=== PATIENT | female | born 1960 | race Caucasian/White ===

== ENCOUNTER 2018-07-20 05:52 | Inpatient (IN) | payer OTHER ==
[~2018-07-20] VITALS: Ht 170.2 cm; Wt 118.0 kg
[2018-07-20] VITALS (33 sets, daily range): BP systolic 120–177; BP diastolic 61–91; PULSE 60–96; RESP 11–22; Ht 170.2 cm; Wt 118.0 kg
[2018-07-20] MEDS ORDERED: LEVO25TA50 PO (06:43)
[2018-07-20] MEDS ORDERED: LOSA1TAB22 PO (06:44)
[2018-07-20] MEDS: LACTATED RINGER'S 1,000 ML IV SCH (07:21)
--- NOTE | 2018-07-20 07:23 | HPN ---
Date/Time of Note Date/Time of Note DATE: 07/20/18 TIME: 07:23 Interval H&P Admission Note Pt. seen H&P reviewed: No system changes OVIDIO NOVA MD Jul 20, 2018 07:23
[2018-07-20] MEDS ORDERED: VANCOMYCIN 1 GM INJ ONE ×2 (07:29→09:51)
[2018-07-20] MEDS ORDERED: GELATIN SIZE 100 SPONGE ONE (07:29)
[2018-07-20] MEDS ORDERED: BUPIVACAINE 0.5%/EPI (SDV) 30 ML INJ ONE (07:30)
[2018-07-20] MEDS ORDERED: THROMBIN 5000 UNIT VIAL ONE (07:30)
[2018-07-20] MEDS ORDERED: HEPARIN 1000 UNITS/ML 10 ML INJ ONE (07:31)
--- NOTE | 2018-07-20 07:40 | PREAC ---
Date/Time of Note Date/Time of Note DATE: 07/20/18 TIME: 07:38 Anesthesia Eval and Record Evaluation Time Pre-Procedure Interview DATE: 07/20/18 TIME: 07:38 Age 57 Sex female NPO: 8 hrs Preoperative diagnosis degenerative disk disease Planned procedure anterior posterior lumbar fusion Past Medical History Past Medical History: Includes Cardio: HTN Endo: Hypothyroid GI: Obesity Surgery & Anesthesia Issues No known issue Meds Anticoagulation: No Beta Billy within 24 hr: No Reason Beta Billy not given: Pt. not on B-Billy Reported Medications Losartan-Hydrochlorothiazide (Losartan-HCTZ) 50-12.5 Mg Tab, 1 TAB PO DAILY, TAB 07/20/18 Levothyroxine Sodium* (Levoxyl*) 25 Mcg Tablet, 25 MCG PO BEFORE BREAKFAST, #30 TAB 07/20/18 Current Medications Lactated Ringer's 1,000 ml @ 30 mls/hr Q24H IV Last administered on 07/20/18at 07:21; Admin Dose 30 MLS/HR; Start 07/20/18 at 07:30 Meds reviewed: Yes Allergies Coded Allergies: Penicillins (Verified Allergy, Mild, 07/20/18) procaine (Verified Allergy, Mild, 07/20/18) Iodine and Iodide Containing Produc (Verified Allergy, Unknown, 07/20/18) shrimp (Verified Allergy, Unknown, 07/20/18) Allergies Reviewed: Yes Labs/Studies Labs Reviewed: Reviewed by anesthesiologist test: N/A Pre-procedure Exam Last vitals Vital Signs Date Temp Pulse Resp B/P (MAP) Pulse Ox O2 O2 Flow FiO2 Time Delivery Rate 07/20/18 98.1 70 18 146/75 99 07:13 (98) Airway: Adequate mouth opening, Adequate thyromental dist Mallampati: Mallampati IV Teeth: Normal Lung: Normal Heart: Normal ASA Physical Status ASA physical status: 3 Emergency: None Pre-operative Attestations Prior to commencing anesthesia and surgery, the patient was re-evaluated, there was verification of: *The patient's identity *The results of appropriate recent lab work and preoperative vital signs *The above evaluation not changing prior to induction *Anesthetic plan, risk benefits, alternative and complications discussed with patient/family; questions answered; patient/family understands, accepts and wishes to proceed. MORALES PHILLIPS DO Jul 20, 2018 07:40
[2018-07-20] MEDS ORDERED: ETOMIDATE 20 MG INJ ONE (07:43)
[2018-07-20] MEDS ORDERED: PROPOFOL 20 ML ONE (07:43)
[2018-07-20] MEDS ORDERED: ROCURONIUM 50 MG INJ ONE (07:43)
[2018-07-20] MEDS ORDERED: LIDOCAINE 1% (MDV) 20 ML INJ ONE (07:43)
[2018-07-20] MEDS ORDERED: MIDAZOLAM 1 MG/ML 2 ML INJ ONE (07:43)
[2018-07-20] MEDS ORDERED: CLINDAMYCIN 900 MG/D5W (PMX) 50 ML IVPB ONE (08:29)
[2018-07-20] MEDS ORDERED: METOCLOPRAMIDE 10 MG INJ ONE (14:01)
[2018-07-20] MEDS ORDERED: DEXAMETHASONE 4 MG/ML 5 ML INJ ONE (14:01)
[2018-07-20] MEDS ORDERED: ONDANSETRON 4 MG INJ ONE (14:01)
[2018-07-20] MEDS ORDERED: FAMOTIDINE 20 MG INJ ONE (14:02)
[2018-07-20] MEDS ORDERED: morphine 10 MG INJ ONE (14:14)
--- NOTE | 2018-07-20 14:36 | OPR ---
Date/Time of Note Date/Time of Note DATE: 07/20/18 TIME: 14:18 Operative Report Free Text/Dictation DATE OF OPERATION: 07/20/2018 PREOPERATIVE DIAGNOSES: 1. L4-5 degenerative disc disease with stenosis with radiculopathy 2. L5-S1 degenerative disc disease with severe bilateral foraminal stenosis with radiculopathy 3. Morbid Obesity 40.7 kg/m2 POSTOPERATIVE DIAGNOSES: 1. L4-5 degenerative disc disease with stenosis with radiculopathy 2. L5-S1 degenerative disc disease with severe bilateral foraminal stenosis with radiculopathy 3. Morbid Obesity 40.7 kg/m2 OPERATION PERFORMED: 1. Anterior lumbar interbody fusion L4-5 2. Placement of anterior interbody device L4-5 3. Placement of posterior spinal segmental instrumentation L4-5 4. Posterior spinal fusion L4-5 5. Anterior lumbar interbody fusion L5-S1 6. Placement of anterior interbody device L5-S1 7. Placement of posterior spinal segmental instrumentation L5-S1 8. Posterior spinal fusion L5-S1 9. Interpretation of neuromonitoring SURGEON: Ovidio Nova MD Vascular surgeon: Choco Fulton MD ANESTHESIA: General endotracheal ESTIMATED BLOOD LOSS: 350 cc SURGICAL INDICATION: The patient is a 57 year-old female who presents with an increasing history of back and bilateral (right greater than left) leg pain with weakness. She has a past medical history significant for a left sided L5- [id number]. The patient was found to have severe degenerative disk disease at L4-5 and L5-S1 with associated foraminal stenosis with radiculopathy. The patient had failed conservative treatments. Risks, benefits and alternatives to an anterior and posterior spinal fusion with instrumentation were explained to the patient including but not exclusive of bleeding, infection, visceral injury, nerve injury, nonunion, instrumentation failure, lack of symptom relief, myocardial infarction, stroke, and pulmonary embolism, and they wished to proceed. DESCRIPTION OF TECHNIQUE: The patient was identified in the preoperative area and taken to the operating room. Rapid induction of general endotracheal anesthesia was performed. Patient was given 900 milligrams of IV clindamycin for prophylaxis. The patient was positioned in the supine position on the operative table. All bony prominences were well padded. The patient's abdomen and left flank were prepped and draped in the usual sterile fashion. A time out was held. A longitudinal skin incision was made across the L4-S1 level by our vascular surgeon Dr. Fulton. After the exposure was completed, I performed a L4-5 diskectomy. The disc was incised using a sharp 15 mm blade. I then used a rubina elevator to loosen the disk material from the superior and inferior endplates. I then used a rongeur to luz ve the disc material and a series of curved and straight curettes to evacuate the disc space. I also used a series of pituitaries and kerrisons to ensure appropriate end plate preparation. Attention was placed to ensure removal of disk material to bleeding endplates without violation of the endplate. I then used the trial rasps to prepare and size the disc space and was able to place a 14 mm x 42 mm x 30mm PEEK anterior lumbar interbody spacer with 8 degrees of lordosis. To ensure appropriate sizing of the implant, I checked for fit and placement under C arm control and I felt the 8 degree lordotic 14 mm cage gained good lordosis and advent of disc height and was an appropriate fit. I then inserted the cage after the trail. This cage was filled with 1 sponge of BMP and morselized bone allograft. Additional morselized allograft was placed around and anterior to the cage in the disc space. 2mL of tisseal was also used prior to placement of the cage in order to reduce the risk of BMP radiculitis. Four 25 mm screws were placed to secure the implant to the lumbar vertebrae. The exposure was then extended distally to the L5-S1 disk space. I performed a L5-S1 diskectomy. The disc was incised using a sharp 15 mm blade. I then used a urbina elevator to loosen the disk material from the superior and inferior endplates. I then used a rongeur to remove the disc material and a series of curved and straight curettes to evacuate the disc space. I also used a series of pituitaries and kerrisons to ensure appropriate end plate preparation. Attention was placed to ensure removal of disk material to bleeding endplates without violation of the endplate. I then used the trial rasps to prepare and size the disc space and was able to place a 12 mm trial with 12 degrees of lordosis. To ensure appropriate sizing of the implant, I checked for fit and placement under C arm control and I felt the 12degree lordotic 12 mm cage gained good lordosis and advent of disc height and was an appropriate fit. I then inserted the 12mm [id number] 12 degree lordotic cage after the trail. This cage was filled with a small BMP and morselized bone allograft. . Additional morselized allograft was placed around and anterior to the cage in the disc space. 2mL of tisseal was also used prior to placement of the cage in order to reduce the risk of BMP radiculitis. Four 25 mm screws were placed to secure the implant to the lumbar vertebrae. The wound was then irrigated. X-rays were taken to check for instruments. Our vascular suregon closed the posterior rectus sheath and incision. The wound was closed and dressed in standard fashion. We then focused on placement of posterior spinal segmental instrumentation from L4-S1. The patient was flipped to the prone position with all bony promineneces well padded. We ensured that the antibiotics were appropriately redosed. The lumbar spine was then prepped and draped in sterile fashion. A timeout was once again performed. . Using intraoperative fluoroscopy, the pedicles were identified at each level. Care was taken to alter the fluoroscopic view to have a true AP and lateral at each level. Jamshidi needles were then passed down to the lateral aspect of the pedicles through stab incisions. The Jamshidi needles were malleted into the pedicles. These were also performed under EMG guidance. Care was taken to ensure that the needles did not pass the medial wall of the pedicle on the AP view prior to checking that the needle was past the posterior wall of the vertebral body. The needles were then malleted further into the vertebral bodies themselves. Guidewires were passed through the needles and the needles were removed. Taps were applied over the guidewires. Screws were then placed bilaterally into the vertebral bodies. AP and lateral views confirmed appropriate placement of the instrumentation. Attention was turned toward the posterior spinal fusion from L4-S1. Rods were selected of the appropriate length and placed into the screw heads. End caps were applied and final tightening was performed using a pmyzxm-igufrfq-kafvlo wrench. The exposed facet joints were decorticated using a bur. A small remaining amount of the bone (allograft) was placed into the facet joints to facilitate the posterior fusion. Due to the patients morbid obesity (BMI 40.7 kg/m2) an additional 45 minutes was taken for exposure and instrumentation given the patient's body habitus. The wound was irrigated copiously using normal saline. The fascia was then closed using 1 Vicryl in interrupted fashion. Subcutaneous tissue was closed using 2-0 Vicryl in interrupted fashion. Skin was closed using a running 4-0 Monocryl stitch. The wounds were dressed using Dermabond, sterile gauze and Tegaderm. Procedure Date: Jul 20, 2018 Preoperative Diagnosis 1. L4-5 degenerative disc disease with stenosis with radiculopathy 2. L5-S1 degenerative disc disease with severe bilateral foraminal stenosis with radiculopathy 3. Morbid Obesity 40.7 kg/m2 Postoperative Diagnosis 1. L4-5 degenerative disc disease with stenosis with radiculopathy 2. L5-S1 degenerative disc disease with severe bilateral foraminal stenosis with radiculopathy 3. Morbid Obesity 40.7 kg/m2 Operation/Procedure Performed 1. Anterior lumbar interbody fusion L4-5 2. Placement of anterior interbody device L4-5 3. Placement of posterior spinal segmental instrumentation L4-5 4. Posterior spinal fusion L4-5 5. Anterior lumbar interbody fusion L5-S1 6. Placement of anterior interbody device L5-S1 7. Placement of posterior spinal segmental instrumentation L5-S1 8. Posterior spinal fusion L5-S1 9. Interpretation of neuromonitoring Surgeon see signature line Hand Spring Repairer Helper Choco Fulton MD (Vascular access surgeon) Anesthesia Type: general Estimated Blood Loss: other Transfusion none Specimen L4-5 and L5-S1 disk Grafts/Implants Brigade NuVasive Anterior Lumbar Interbody cage L4-5: [id number] 8 degree lordotic L5-S1: [id number] 12 degree lordotic L4-S1 6.5 x 40 mm screws x 6 Rods: 75 mm (right) and 70 mm (Left) Complications none Pt Condition Post Procedure: stable Disposition: PACU Procedure Description The patient was identified in the preoperative area and taken to the operating room. Rapid induction of general endotracheal anesthesia was performed. Patient was given 900 milligrams of IV clindamycin for prophylaxis. The patient was positioned in the supine position on the operative table. All bony prominences were well padded. The patient's abdomen and left flank were prepped and draped in the usual sterile fashion. A time out was held. A longitudinal skin incision was made across the L4-S1 level by our vascular surgeon Dr. Fulton. After the exposure was completed, I performed a L4-5 diskectomy. The disc was incised using a sharp 15 mm blade. I then used a urbina elevator to loosen the disk material from the superior and inferior endplates. I then used a rongeur to remove the disc material and a series of curved and straight curettes to evacuate the disc space. I also used a series of pituitaries and kerrisons to ensure appropriate end plate preparation. Attention was placed to ensure removal of disk material to bleeding endplates without violation of the endplate. I then used the trial rasps to prepare and size the disc space and was able to place a 14 mm x 42 mm x 30mm PEEK anterior lumbar interbody spacer with 8 degrees of lordosis. To ensure appropriate sizing of the implant, I checked for fit and placement under C arm control and I felt the 8 degree lordotic 14 mm cage gained good lordosis and advent of disc height and was an appropriate fit. I then inserted the cage after the trail. This cage was filled with 1 sponge of BMP and morselized bone allograft. Additional morselized allograft was placed around and anterior to the cage in the disc space. 2mL of tisseal was also used prior to placement of the cage in order to reduce the risk of BMP radiculitis. Four 25 mm screws were placed to secure the implant to the lumbar vertebrae. The exposure was then extended distally to the L5-S1 disk space. I performed a L5-S1 diskectomy. The disc was incised using a sharp 15 mm blade. I then used a urbina elevator to loosen the disk material from the superior and inferior endplates. I then used a rongeur to remove the disc material and a series of curved and straight curettes to evacuate the disc space. I also used a series of pituitaries and kerrisons to ensure appropriate end plate preparation. Attention was placed to ensure removal of disk material to bleeding endplates without violation of the endplate. I then used the trial rasps to prepare and size the disc space and was able to place a 12 mm trial with 12 degrees of lordosis. To ensure appropriate sizing of the implant, I checked for fit and placement under C arm control and I felt the 12degree lordotic 12 mm cage gained good lordosis and advent of disc height and was an appropriate fit. I then inserted the 12mm [id number] 12 degree lordotic cage after the trail. This cage was filled with a small BMP and morselized bone allograft. . Additional morselized allograft was placed around and anterior to the cage in the disc space. 2mL of tisseal was also used prior to placement of the cage in order to reduce the risk of BMP radiculitis. Four 25 mm screws were placed to secure the implant to the lumbar vertebrae. The wound was then irrigated. X-rays were taken to check for instruments. Our vascular suregon closed the posterior rectus sheath and incision. The wound was closed and dressed in standard fashion. We then focused on placement of posterior spinal segmental instrumentation from L4-S1. The patient was flipped to the prone position with all bony promineneces well padded. We ensured that the antibiotics were appropriately redosed. The lumbar spine was then prepped and draped in sterile fashion. A timeout was once again performed. . Using intraoperative fluoroscopy, the pedicles were identified at each level. Care was taken to alter the fluoroscopic view to have a true AP and lateral at each level. Jamshidi needles were then passed down to the lateral aspect of the pedicles through stab incisions. The Jamshidi needles were malleted into the pedicles. These were also performed under EMG guidance. Care was taken to ensure that the needles did not pass the medial wall of the pedicle on the AP view prior to checking that the needle was past the posterior wall of the vertebral body. The needles were then malleted further into the vertebral bodies themselves. Guidewires were passed through the needles and the needles were removed. Taps were applied over the guidewires. Screws were then placed bilaterally into the vertebral bodies. AP and lateral views confirmed appropriate placement of the instrumentation. Attention was turned toward the posterior spinal fusion from L4-S1. Rods were selected of the appropriate length and placed into the screw heads. End caps were applied and final tightening was performed using a ewelhe-rotzvsc-smubrb wrench. The exposed facet joints were decorticated using a bur. A small remaining amount of the bone (allograft) was placed into the facet joints to facilitate the posterior fusion. Due to the patients morbid obesity (BMI 40.7 kg/m2) an additional 45 minutes was taken for exposure and instrumentation given the patient's body habitus. The wound was irrigated copiously using normal saline. The fascia was then closed using 1 Vicryl in interrupted fashion. Subcutaneous tissue was closed using 2-0 Vicryl in interrupted fashion. Skin was closed using a running 4-0 Monocryl stitch. The wounds were dressed using Dermabond, sterile gauze and Tegaderm. OVIDIO NOVA MD Jul 20, 2018 14:29
--- NOTE | 2018-07-20 14:55 | PAC ---
Date/Time of Note Date/Time of Note DATE: 07/20/18 TIME: 14:54 Post-Anesthesia Notes Post-Anesthesia Note Last documented vital signs Vital Signs Date Temp Pulse Resp B/P (MAP) Pulse Ox O2 O2 Flow FiO2 Time Delivery Rate 07/20/18 98 75 18 146/75 99 1500 (98) Activity: WNL Respiratory function: WNL Cardiovascular function: WNL Mental status: Baseline Pain reasonably controlled: Yes Hydration appropriate: Yes Nausea/Vomiting absent: Yes MORALES PHILLIPS DO Jul 20, 2018 14:55
[2018-07-20] MEDS ORDERED: NALOXONE (0.4 MG/ML) INJ IV PRN (15:00)
[2018-07-20] MEDS ORDERED: MEPERIDINE 25 MG INJ IV PRN (15:00)
[2018-07-20] MEDS ORDERED: ACETAMINOPHEN 325 MG TAB PO PRN (15:00)
[2018-07-20] MEDS ORDERED: HYDROmorphONE 1 MG/5 ML IV SYRINGE IV PRN ×3 (15:00)
[2018-07-20] MEDS ORDERED: HYDROmorphONE 0.2 MG/ML PCA IV SCH (15:00)
[2018-07-20] MEDS ORDERED: PROCHLORPERAZINE 10 MG TAB PO PRN (15:00)
[2018-07-20] MEDS ORDERED: hydrALAzine 20 MG INJ IV PRN (15:00)
[2018-07-20] MEDS ORDERED: NACL 0.9% 3 ML SYG IV SCH (15:00)
[2018-07-20] MEDS ORDERED: ONDANSETRON 4 MG INJ IV PRN (15:00)
[2018-07-20] MEDS ORDERED: LABETALOL HCL 20MG INJ IV PRN (15:00)
[2018-07-20] MEDS: SOD CHLORIDE 0.45% 1,000 ML IV SCH (17:21)
[2018-07-20] MEDS: LOSARTAN 50 MG TAB PO SCH (18:00)
[2018-07-20] MEDS: VANCOMYCIN 1 GM (PMX) 250 ML IVPB SCH (18:01)
--- NOTE | 2018-07-20 18:07 | CONS ---
DATE OF ADMISSION: 07/20/2018 DATE OF CONSULTATION: 07/20/2018 Dr. Nova. Thank you very much for allowing me to evaluate this 57-year-old female who just underwent lumbar manisha k surgery. HISTORICAL EVENTS: As you well know, this patient underwent surgery for L4-L5 degenerative arthritis requiring an anterior lumbar interbody fusion. Postoperatively, she did well except for nausea and vomiting, which resulted in some bleeding from the anterior wound. Presently, she notes no abdominal discomfort and denies cough, wheezing, shortness of breath, or chest pain. PAST MEDICAL HISTORY: 1. Hypertension. 2. Cholecystectomy. 3. Prior lumbar back surgery. 4. Hypothyroidism. 5. History of right lower extremity nerve damage. MEDICATIONS: Prior to admission: 1. Losartan/hydrochlorothiazide 50/12.5 2. Levothyroxine 25 mg per day. 3. Gabapentin 300 mg. ALLERGIES: INTOLERANCE INCLUDE FISH, PENICILLIN AND NOVOCAIN. PHYSICAL EXAMINATION: VITAL SIGNS: BP 122/80, pulse 72, respirations were 18. She was afebrile. EYES: Extraocular muscles were full. NOSE, MOUTH, AND THROAT: Normal. NECK: Supple. There was no jugular venous distention, thyroid enlargement or adenopathy. LUNGS: Clear. HEART: Rhythm regular. ABDOMEN: Distended. EXTREMITIES: Slight tenderness involving the periumbilical area. The present dressing on the anteri or abdomen was not blood tinged. EXTREMITIES: No edema, no calf tenderness. NEUROLOGIC: No lateralizing motor weakness. IMPRESSION: 1. Postop lumbar back surgery. 2. Mild bleeding from the anterior wound to be observed closely. 3. History of hypertension, to resume her BP 4. Hypothyroidism to resume thyroid replacement. PLAN: Will follow daily for signs and symptoms of thromboembolic disease. Dictated By: AMISH WARD MD MR/NTS Conf#: [id number] DID#: [id number] CC: OVIDIO NOVA MD;*EndCC*
[2018-07-21 00:15] VITALS: BP 111/55; PULSE 97; RESP 20
[2018-07-21] MEDS: SOD CHLORIDE 0.45% 1,000 ML IV SCH ×2 (00:36→03:53)
[2018-07-21 04:16] VITALS: BP 113/55; PULSE 87; RESP 18
[2018-07-21] MEDS: VANCOMYCIN 1 GM (PMX) 250 ML IVPB SCH (05:36)
[2018-07-21] MEDS: LEVOTHYROXINE 25 MCG TAB PO SCH (06:07)
[2018-07-21] MEDS: LACTATED RINGER'S 1,000 ML IV SCH (06:08)
[2018-07-21 07:40] VITALS: BP 113/59; PULSE 86; RESP 19
--- NOTE | 2018-07-21 08:31 | CONS ---
Assessment/Plan Assessment/Plan Assessment/Plan (Daily) 1. Stable post op lumbar back surgery 2. BP well controlled. 3. Anemia noted 4. Hypothyroid on replacement rx Consultation Date/Type/Reason Admit Date/Time Jul 20, 2018 at 05:52 Initial Consult Date Date/Time of Note DATE: 07/21/18 TIME: 08:29 Detailed Summary Respiratory: No cough, No shortness of breath Cardiovascular: No chest pain, No palpitations Gastrointestinal: other (mild periumbilical discomnfort without n or v) Genitourinary: other (hankins in place) Musculoskeletal: back pain (moderate) Exam/Review of Systems Exam Vitals Vital Signs Date Temp Pulse Resp B/P (MAP) Pulse Ox O2 O2 Flow FiO2 Time Delivery Rate 07/21/18 98.0 86 19 113/59 97 Room Air 07:40 (77) 07/21/18 2.0 04:16 Intake and Output 07/20/18 07/20/18 07/21/18 1515:00 23:00 07:00 IntakeIntake Total 3125 ml 375 ml 1530 ml OutputOutput Total 550 ml 1800 ml BalanceBalance 2575 ml 375 ml -270 ml Neck: No jvd Respiratory: clear to auscultation Cardiovascular: regular rate and rhythm Gastrointestinal: soft, distended (mild and sl tenderness) Extremities: No edema Results Result Diagram: 07/21/18 0444 07/21/18 0444 Results 24hrs Laboratory Tests Test 07/20/18 18:34 07/21/18 04:44 07/21/18 07:51 White Blood Count 8.1 Red Blood Count 3.73 L Hemoglobin 12.1 10.9 L Hematocrit 36.1 L 33.1 L Mean Corpuscular Volume 96.8 Mean Corpuscular Hemoglobin 32.4 Mean Corpuscular 33.5 Hemoglobin Concent Red Cell Distribution Width 14.9 H Platelet Count 170 Mean Platelet Volume 11.2 H Immature Granulocytes % 0.700 H Neutrophils % 90.0 H Lymphocytes % 5.2 L Monocytes % 4.0 Eosinophils % 0.0 Basophils % 0.1 Nucleated Red Blood Cells % 0.0 Immature Granulocytes # 0.060 H Neutrophils # 7.3 Lymphocytes # 0.4 L Monocytes # 0.3 Eosinophils # 0.0 Basophils # 0.0 Nucleated Red Blood Cells # 0.0 Sodium Level 140 Potassium Level 3.9 Chloride Level 106 Carbon Dioxide Level 26 Anion Gap 8 Blood Urea Nitrogen 11 Creatinine 0.73 Est Glomerular Filtrat > 60 Rate mL/min Glucose Level 131 Calcium Level 8.4 Lab Scanned Report REFERENCE LAB Medications Medication Current Medications Lactated Ringer's 1,000 ml @ 30 mls/hr Q24H IV Last administered on 07/20/18at 07:21; Admin Dose 30 MLS/HR; Start 07/20/18 at 07:30 Sodium Chloride 1,000 ml @ 100 mls/hr Q10H IV Last administered on 07/21/18at 03:53; Admin Dose 100 MLS/HR; Start 07/20/18 at 14:36 Acetaminophen/ Hydrocodone Bitart ([place] (5/325)) 1 tab Q4H PRN PO .PAIN 1-5; Start 07/20/18 at 15:00 Acetaminophen/ Hydrocodone Bitart ([place] (5/325)) 2 tab Q4H PRN PO .PAIN 6-10; Start 07/20/18 at 15:00 Prochlorperazine (Compazine) 10 mg Q4H PRN PO NAUSEA/VOMITING; Start 07/20/18 at 15:00 Ondansetron HCl (Zofran Inj) 4 mg Q6H PRN IV NAUSEA/VOMITING Last administered on 07/20/18at 16:03; Admin Dose 4 MG; Start 07/20/18 at 15:00 Docusate Sodium (Colace) 100 mg BID PO ; Start 07/21/18 at 09:00 Acetaminophen (Tylenol Tab) 650 mg Q4H PRN PO TEMP GREATER THAN 101F OR [place]; Start 07/20/18 at 15:00 IV Flush (NS 3 ml) 3 ml PER PROTOCOL IV ; Start 07/20/18 at 15:00 Hydromorphone HCl (Dilaudid LEAKAGE TESTER) Q4PCA IV Last administered on 07/20/18at 15:03; Admin Dose 6 MG; Start 07/20/18 at 15:00 Naloxone HCl (Narcan) 0.2 mg Q2M PRN IV RR 8 BREATHS/MIN OR LESS; Start 07/20/18 at 15:00 Levothyroxine Sodium (Synthroid) 25 mcg BEFORE BREAKFAST PO Last administered on 07/21/18at 06:07; Admin Dose 25 MCG; Start 07/21/18 at 07:00 Losartan Potassium (Cozaar) 50 mg DAILY PO ; Start 07/20/18 at 18:00 AMISH WARD MD Jul 21, 2018 08:31
[2018-07-21] MEDS: DOCUSATE SODIUM 100 MG CAP PO SCH ×2 (08:49→20:12)
[2018-07-21] MEDS: LOSARTAN 50 MG TAB PO SCH (08:50)
--- NOTE | 2018-07-21 13:15 | CONS ---
Consultation Date/Type/Reason Admit Date/Time Jul 20, 2018 at 05:52 Initial Consult Date Date/Time of Note DATE: 07/21/18 TIME: 12:59 24 HR Interval Summary Free Text/Dictation S: 57 yo F POD#1 s/p L4-S1 ALIF w/ PSIF. Patient is doing well. No acute events over night. Pain controlled w/ dilaudid HOOF TRIMMER. OOB w/ PT. Toerating clear diet. O: Vital Signs Date Temp Pulse Resp B/P (MAP) Pulse Ox O2 O2 Flow FiO2 Time Delivery Rate 07/21/18 98.0 86 19 113/59 97 Room Air 07:40 (77) 07/21/18 2.0 04:16 Gen: AAO x3, NAD Spine: Mild decreased sensation in RLE in L5 distribution (improved from pre- op), 4+/5 TA (improved from preop), NVI Abdomen: Mild SS drainage, soft, mild distension A/P:57 yo F POD#1 s/p L4-S1 ALIF w/ PSIF. 1. D/C hankins 2. D/C HOOF TRIMMER start PO [place] w/ dilaudid for breakthrough 3. Acute Rehab consult 4. Appreciate med recs Exam/Review of Systems Exam Vitals Vital Signs Date Temp Pulse Resp B/P (MAP) Pulse Ox O2 O2 Flow FiO2 Time Delivery Rate 07/21/18 98.0 86 19 113/59 97 Room Air 07:40 (77) 07/21/18 2.0 04:16 Intake and Output 07/20/18 07/20/18 07/21/18 1515:00 23:00 07:00 IntakeIntake Total 3125 ml 375 ml 1530 ml OutputOutput Total 550 ml 1800 ml BalanceBalance 2575 ml 375 ml -270 ml Results Result Diagram: 07/21/18 0444 07/21/18 0444 Results 24hrs Laboratory Tests Test 07/20/18 18:34 07/21/18 04:44 07/21/18 07:51 White Blood Count 8.1 Red Blood Count 3.73 L Hemoglobin 12.1 10.9 L Hematocrit 36.1 L 33.1 L Mean Corpuscular Volume 96.8 Mean Corpuscular Hemoglobin 32.4 Mean Corpuscular 33.5 Hemoglobin Concent Red Cell Distribution Width 14.9 H Platelet Count 170 Mean Platelet Volume 11.2 H Immature Granulocytes % 0.700 H Neutrophils % 90.0 H Lymphocytes % 5.2 L Monocytes % 4.0 Eosinophils % 0.0 Basophils % 0.1 Nucleated Red Blood Cells % 0.0 Immature Granulocytes # 0.060 H Neutrophils # 7.3 Lymphocytes # 0.4 L Monocytes # 0.3 Eosinophils # 0.0 Basophils # 0.0 Nucleated Red Blood Cells # 0.0 Sodium Level 140 Potassium Level 3.9 Chloride Level 106 Carbon Dioxide Level 26 Anion Gap 8 Blood Urea Nitrogen 11 Creatinine 0.73 Est Glomerular Filtrat > 60 Rate mL/min Glucose Level 131 Calcium Level 8.4 Lab Scanned Report REFERENCE LAB Medications Medication Current Medications Sodium Chloride 1,000 ml @ 100 mls/hr Q10H IV Last administered on 07/21/18at 03:53; Admin Dose 100 MLS/HR; Start 07/20/18 at 14:36 Acetaminophen/ Hydrocodone Bitart ([place] (5/325)) 1 tab Q4H PRN PO .PAIN 1-5; Start 07/20/18 at 15:00 Acetaminophen/ Hydrocodone Bitart ([place] (5/325)) 2 tab Q4H PRN PO .PAIN 6-10; Start 07/20/18 at 15:00 Prochlorperazine (Compazine) 10 mg Q4H PRN PO NAUSEA/VOMITING; Start 07/20/18 at 15:00 Ondansetron HCl (Zofran Inj) 4 mg Q6H PRN IV NAUSEA/VOMITING Last administered on 07/20/18at 16:03; Admin Dose 4 MG; Start 07/20/18 at 15:00 Docusate Sodium (Colace) 100 mg BID PO Last administered on 07/21/18at 08:49; Admin Dose 100 MG; Start 07/21/18 at 09:00 Acetaminophen (Tylenol Tab) 650 mg Q4H PRN PO TEMP GREATER THAN 101F OR [place]; Start 07/20/18 at 15:00 IV Flush (NS 3 ml) 3 ml PER PROTOCOL IV ; Start 07/20/18 at 15:00 Hydromorphone HCl (Dilaudid HOOF TRIMMER) Q4PCA IV Last administered on 07/20/18at 15:03; Admin Dose 6 MG; Start 07/20/18 at 15:00 Naloxone HCl (Narcan) 0.2 mg Q2M PRN IV RR 8 BREATHS/MIN OR LESS; Start 07/20/18 at 15:00 Levothyroxine Sodium (Synthroid) 25 mcg BEFORE BREAKFAST PO Last administered on 07/21/18at 06:07; Admin Dose 25 MCG; Start 07/21/18 at 07:00 Losartan Potassium (Cozaar) 50 mg DAILY PO ; Start 07/20/18 at 18:00 OVIDIO NOVA MD Jul 21, 2018 13:14
[2018-07-21] MEDS: HYDROCODONE/APAP (5/325) TAB PO PRN (14:00)
[2018-07-21 14:48] VITALS: BP 117/58; PULSE 92
--- NOTE | 2018-07-21 16:33 | OPR ---
DATE OF OPERATION: 07/20/2018 PREOPERATIVE DIAGNOSIS: Degenerative disk disease, lumbosacral spine. POSTOPERATIVE DIAGNOSIS: Degenerative disk disease, lumbosacral spine PROCEDURES: 1. Anterior retroperitoneal exposure interbody fusion L4-L5. 2. Anterior retroperitoneal exposure interbody fusion lumbosacral spine, L5-S1. 3. Repair of left iliac vein. SURGEON: Fabricio Baltazar MD CARTON CATCHER: Dr. Dwyer ESTIMATED BLOOD LOSS: 200 mL. INFORMED CONSENT: Risks, benefits, complications, alternative therapies, high-risk nature of the ope ration fully explained to the patient and the family, consent obtained. Risks and benefits that were explained to the patient and the family included, but not limited to bleeding, infection, damage to bowel, damage to ureter, wound infection, wound dehiscences, DVT, PE, loss of limb, loss of life, hig h-risk nature of the operation fully explained and stressed to the patient. All questions answered. DESCRIPTION OF PROCEDURE: I made a 10 cm incision midline from the umbilicus down to the xiphoid pro cess. Incision was taken down to subcutaneous tissue. Post-anterior rectus sheath was opened in the direction of the wound slightly to the left of the midline. Posterior rectus sheath was incised sup eriorly about 2 cm. Bookwalter retractor was placed, retracting the bowel contents to the right, lef t rectus muscle to the left. I dissected the left common iliac artery and vein, external iliac arter y and vein, middle sacral vessels were ligated using titanium clips. The lumbar vessels were ligated using 2-0 silk ties and titanium clips. Exposure for L4-L5 was obtained by lateralizing the aorta, vena cava and iliac vessels to the right. Exposure for L5-S1 was between the right and left common i liac artery and vein. There was a small branch that avulsed from the left common iliac vein, which w as repaired using a [id number] 6-0 Prolene. We proceeded with diskectomy and placement of the n ew cage. Please refer to Dr. Dwyer's dictation for the details of that operation. After all x-r ays were satisfactorily read by Dr. Dwyer, anterior rectus sheath was closed using a #1 Vicryl srivastava ture in running fashion, interrupted sutures in the middle. The wound was irrigated again and closed in 2 layers of 2-0 Vicryl suture for subcutaneous, Steri-Strips for the skin. Patient tolerated pro cedure well. Dictated By: FABRICIO GILMORE/ARCADIO Conf#: [id number] DID#: [id number]
--- NOTE | 2018-07-21 16:34 | CONS ---
DATE OF ADMISSION: 07/20/2018 DATE OF CONSULTATION: 07/20/2018 PREOPERATIVE DIAGNOSIS: Degenerative disk disease, lumbosacral spine. HISTORY OF PRESENT ILLNESS: This is a 57-year-old female with history of degenerative disk disease, lumbosacral spine. The patient is to undergo anterior retroperitoneal exposure and interbody fusion of lumbosacral spine. PAST MEDICAL HISTORY: Hypertension, obesity. PAST SURGICAL HISTORY: None. ALLERGIES: NONE. SOCIAL HISTORY: No smoking, drinking or drug use. MEDICATION LIST: Reviewed. PHYSICAL EXAMINATION: VITAL SIGNS: Blood pressure is 110/60, pulse is 80, respirations 18. CARDIOVASCULAR: Normal S1, S2. No murmurs, gallops or rubs. LUNGS: Clear. ABDOMEN: Soft. EXTREMITIES: Warm. IMPRESSION: Degenerative disk disease, lumbosacral spine. RECOMMENDATIONS: We will proceed with anterior retroperitoneal exposure interbody fusion of lumbosac ral spine. Risks, benefits, complications, alternative therapies were explained to the patient and c onsent was obtained. Risks and benefits that were explained to the patient included but not limited to bleeding, infection, damage to bowel, damage to ureter, wound infection, wound dehiscence, DVT, PE , loss of limb, loss of life, high-risk nature of the operation were fully explained and stressed to the patient. All questions were answered. Dictated By: FABRICIO RICHMOND MD FM/NTS Conf#: [id number] DID#: [id number] CC: AMISH WARD MD; OVIDIO NOVA MD;*EndCC*
[2018-07-21 19:49] VITALS: BP 118/61; PULSE 93; RESP 18
[2018-07-21] MEDS ORDERED: ACETAMINOPHEN 1000MG/100ML IV 100 ML IVPB SCH (20:00)
[2018-07-22] MEDS: HYDROCODONE/APAP (5/325) TAB PO PRN ×3 (00:26→18:30)
[2018-07-22 01:21] VITALS: BP 123/64; PULSE 103; RESP 18
[2018-07-22] MEDS: LEVOTHYROXINE 25 MCG TAB PO SCH (06:21)
[2018-07-22] MEDS ORDERED: ACETAMINOPHEN 1000MG/100ML IV 100 ML IVPB PRN (08:00)
--- NOTE | 2018-07-22 08:16 | CONS ---
Assessment/Plan Assessment/Plan Assessment/Plan (Daily) 1. Post op lumbar back surgery with ileus, cont to ambulate aggressively 2. Labs rev 3. Anemia is stable Consultation Date/Type/Reason Admit Date/Time Jul 20, 2018 at 05:52 Initial Consult Date Date/Time of Note DATE: 07/22/18 TIME: 08:13 Detailed Summary Respiratory: No cough, No shortness of breath Cardiovascular: No chest pain Gastrointestinal: other (bloated and lower abd discomfort without flatus) Genitourinary: no complaints Exam/Review of Systems Exam Vitals Vital Signs Date Temp Pulse Resp B/P (MAP) Pulse Ox O2 O2 Flow FiO2 Time Delivery Rate 07/22/18 99.5 103 18 123/64 98 01:21 (83) 07/21/18 Room Air 14:48 07/21/18 2.0 04:16 Intake and Output 07/21/18 07/21/18 07/22/18 1515:00 23:00 07:00 IntakeIntake Total 610 ml 850 ml 600 ml OutputOutput Total 650 ml BalanceBalance -40 ml 850 ml 600 ml Neck: No jvd Respiratory: clear to auscultation Cardiovascular: regular rate and rhythm Gastrointestinal: distended (rare bs and sl tender) Extremities: No edema, No tenderness Results Result Diagram: 07/22/188 07/22/18 0438 Results 24hrs Laboratory Tests Test 07/22/18 04:38 White Blood Count 7.0 Red Blood Count 3.27 L Hemoglobin 10.5 L Hematocrit 31.7 L Mean Corpuscular Volume 96.9 Mean Corpuscular Hemoglobin 32.1 Mean Corpuscular Hemoglobin Concent 33.1 Red Cell Distribution Width 15.1 H Platelet Count 170 Mean Platelet Volume 12.0 H Immature Granulocytes % 0.400 Neutrophils % 74.7 Lymphocytes % 14.8 L Monocytes % 10.1 Eosinophils % 0.0 Basophils % 0.0 Nucleated Red Blood Cells % 0.0 Immature Granulocytes # 0.030 Neutrophils # 5.2 Lymphocytes # 1.0 Monocytes # 0.7 Eosinophils # 0.0 Basophils # 0.0 Nucleated Red Blood Cells # 0.0 Sodium Level 137 Potassium Level 3.5 Chloride Level 103 Carbon Dioxide Level 28 Anion Gap 6 Blood Urea Nitrogen 10 Creatinine 0.70 Est Glomerular Filtrat Rate mL/min > 60 Glucose Level 119 Calcium Level 8.5 Phosphorus Level 2.7 Magnesium Level 1.7 Medications Medication Current Medications Acetaminophen/ Hydrocodone Bitart ([place] (5/325)) 1 tab Q4H PRN PO .PAIN 1-5 Last administered on 07/22/18at 06:22; Admin Dose 1 TAB; Start 07/20/18 at 15:00 Acetaminophen/ Hydrocodone Bitart ([place] (5/325)) 2 tab Q4H PRN PO .PAIN 6-10; Start 07/20/18 at 15:00 Prochlorperazine (Compazine) 10 mg Q4H PRN PO NAUSEA/VOMITING; Start 07/20/18 at 15:00 Ondansetron HCl (Zofran Inj) 4 mg Q6H PRN IV NAUSEA/VOMITING Last administered on 07/20/18at 16:03; Admin Dose 4 MG; Start 07/20/18 at 15:00 Docusate Sodium (Colace) 100 mg BID PO Last administered on 07/21/18at 20:12; Admin Dose 100 MG; Start 07/21/18 at 09:00 Acetaminophen (Tylenol Tab) 650 mg Q4H PRN PO TEMP GREATER THAN 101F OR [place]; S tart 07/20/18 at 15:00 IV Flush (NS 3 ml) 3 ml PER PROTOCOL IV ; Start 07/20/18 at 15:00 Naloxone HCl (Narcan) 0.2 mg Q2M PRN IV RR 8 BREATHS/MIN OR LESS; Start 07/20/18 at 15:00 Levothyroxine Sodium (Synthroid) 25 mcg BEFORE BREAKFAST PO Last administered on 07/22/18at 06:21; Admin Dose 25 MCG; Start 07/21/18 at 07:00 Losartan Potassium (Cozaar) 50 mg DAILY PO ; Start 07/20/18 at 18:00 Hydromorphone HCl (Dilaudid) 0.5 mg Q3H PRN IV SEVERE PAIN LEVEL 7-10; Start 07/21/18 at 13:30 Simethicone (Mylicon) 80 mg BID PRN PO DISTENSION/GAS/BLOATING Last administered on 07/22/18at 06:21; Admin Dose 80 MG; Start 07/21/18 at 20:00 Acetaminophen 100 ml @ 400 mls/hr Q12H PRN IVPB PAIN; Start 6/12/19 at 08:00 AMISH WARD MD Jul 22, 2018 08:16
[2018-07-22 08:50] VITALS: BP 117/63; PULSE 79; RESP 20
[2018-07-22] MEDS: LOSARTAN 50 MG TAB PO SCH (09:00)
[2018-07-22] MEDS: DOCUSATE SODIUM 100 MG CAP PO SCH ×2 (09:11→20:44)
[2018-07-22] MEDS ORDERED: POTASSIUM CHLORIDE (SR) 10 MEQ TAB PO ONE (09:15)
[2018-07-22] MEDS ORDERED: MAGNESIUM SULFATE 3 GM in DEXTROSE 5% 100 ML IVPB ONE (09:15)
[2018-07-22] MEDS: HYDROmorphONE 0.5 MG/0.5 ML SYG IV PRN ×2 (12:16→20:35)
[2018-07-22 14:15] VITALS: BP 121/62; PULSE 82; RESP 19
[2018-07-22 19:30] VITALS: BP 118/58; PULSE 98; RESP 20
[2018-07-22 20:39] VITALS: BP 124/58; PULSE 95; RESP 20
[2018-07-23] VITALS: BP 124/60; PULSE 89; RESP 20
[2018-07-23] MEDS: HYDROCODONE/APAP (5/325) TAB PO PRN ×3 (01:10→17:39)
[2018-07-23 06:13] VITALS: BP 120/60; RESP 20
[2018-07-23] MEDS: LEVOTHYROXINE 25 MCG TAB PO SCH (06:15)
--- NOTE | 2018-07-23 08:01 | CONS ---
Assessment/Plan Assessment/Plan Assessment/Plan (Daily) 1. Post op lumbar surgery, better today 2. Ileus resolving 3. Temp yesterday, blood cult pending, prior urine cult is neg 4. Cough noted, cxr was neg and wbc nl, will observe and continue incentive sp irometry, rev with RN 5. Anemia is stable Consultation Date/Type/Reason Admit Date/Time Jul 20, 2018 at 05:52 Initial Consult Date Date/Time of Note DATE: 07/23/18 TIME: 07:59 Detailed Summary Respiratory: cough (noted yesterday with baxter mucus); No shortness of breath Cardiovascular: No chest pain Gastrointestinal: other (passed gas this am) Genitourinary: no complaints Musculoskeletal: back pain (is less) Exam/Review of Systems Exam Vitals Vital Signs Date Temp Pulse Resp B/P (MAP) Pulse Ox O2 O2 Flow FiO2 Time Delivery Rate 07/23/18 98.0 20 120/60 99 Nasal 06:13 (80) Cannula 07/23/18 89 00:00 07/22/18 2.0 20:39 Intake and Output 07/22/18 07/22/18 07/23/18 1515:00 23:00 07:00 IntakeIntake Total 206 ml 480 ml 400 ml OutputOutput Total 800 ml BalanceBalance 206 ml 480 ml -400 ml Neck: No jvd Respiratory: clear to auscultation Cardiovascular: regular rate and rhythm Gastrointestinal: soft Extremities: No calf tenderness, No edema Results Result Diagram: 07/23/18 0452 07/23/18 0452 Results 24hrs Laboratory Tests Test 07/23/18 04:52 White Blood Count 7.0 Red Blood Count 3.15 L Hemoglobin 10.1 L Hematocrit 30.4 L Mean Corpuscular Volume 96.5 Mean Corpuscular Hemoglobin 32.1 Mean Corpuscular Hemoglobin Concent 33.2 Red Cell Distribution Width 14.8 H Platelet Count 178 Mean Platelet Volume 11.7 H Immature Granulocytes % 0.400 Neutrophils % 75.0 Lymphocytes % 14.9 L Monocytes % 8.7 Eosinophils % 0.7 Basophils % 0.3 Nucleated Red Blood Cells % 0.0 Immature Granulocytes # 0.030 Neutrophils # 5.2 Lymphocytes # 1.0 Monocytes # 0.6 Eosinophils # 0.1 Basophils # 0.0 Nucleated Red Blood Cells # 0.0 Sodium Level 137 Potassium Level 3.8 Chloride Level 102 Carbon Dioxide Level 30 Anion Gap 5 Blood Urea Nitrogen 9 Creatinine 0.66 Est Glomerular Filtrat Rate mL/min > 60 Glucose Level 110 Calcium Level 8.7 Phosphorus Level 3.0 Magnesium Level 2.2 Medications Medication Current Medications Acetaminophen/ Hydrocodone Bitart ([place] (5/325)) 1 tab Q4H PRN PO .PAIN 1-5 Last administered on 07/22/18 18:30; Admin Dose 1 TAB; Start 07/20/18 at 15:00 Acetaminophen/ Hydrocodone Bitart ([place] (5/325)) 2 tab Q4H PRN PO .PAIN 6-10 Last administered on 07/23/18at 01:10; Admin Dose 2 TAB; Start 07/20/18 at 15:00 Prochlorperazine (Compazine) 10 mg Q4H PRN PO NAUSEA/VOMITING; Start 07/20/18 at 15:00 Ondansetron HCl (Zofran Inj) 4 mg Q6H PRN IV NAUSEA/VOMITING Last administered on 07/20/18at 16:03; Admin Dose 4 MG; Start 07/20/18 at 15:00 Docusate Sodium (Colace) 100 mg BID PO Last administered on 07/22/18at 20:44; Admin Dose 100 MG; Start 07/21/18 at 09:00 Acetaminophen (Tylenol Tab) 650 mg Q4H PRN PO TEMP GREATER THAN 101F OR [place]; Start 07/20/18 at 15:00 IV Flush (NS 3 ml) 3 ml PER PROTOCOL IV ; Start 07/20/18 at 15:00 Naloxone HCl (Narcan) 0.2 mg Q2M PRN IV RR 8 BREATHS/MIN OR LESS; Start 07/20 at 15:00 Levothyroxine Sodium (Synthroid) 25 mcg BEFORE BREAKFAST PO Last administered on 07/23/18at 06:15; Admin Dose 25 MCG; Start 07/21/18 at 07:00 Losartan Potassium (Cozaar) 50 mg DAILY PO ; Start 07/20/18 at 18:00 Hydromorphone HCl (Dilaudid) 0.5 mg Q3H PRN IV SEVERE PAIN LEVEL 7-10 Last administered on 07/22/18at 20:35; Admin Dose 0.5 MG; Start 07/21/18 at 13:30 Simethicone (Mylicon) 80 mg BID PRN PO DISTENSION/GAS/BLOATING Last administered on 07/22/18 20:45; Admin Dose 80 MG; Start 07/21/18 at 20:00 Acetaminophen 100 ml @ 400 mls/hr Q12H PRN IVPB PAIN Last administered on 07/11 09:20; Admin Dose 400 MLS/HR; Start 07/22/18 at 08:00 AMISH WARD MD Jul 23, 2018 08:01
[2018-07-23 08:06] VITALS: BP 124/50; PULSE 75; RESP 18
[2018-07-23] MEDS: DOCUSATE SODIUM 100 MG CAP PO SCH ×2 (09:31→20:28)
[2018-07-23] MEDS: LOSARTAN 50 MG TAB PO SCH (09:31)
--- NOTE | 2018-07-23 12:25 | CONS ---
Consultation Date/Type/Reason Admit Date/Time Jul 20, 2018 at 05:52 Initial Consult Date Date/Time of Note DATE: 07/23/18 TIME: 12:22 24 HR Interval Summary Free Text/Dictation S: 57 yo F POD#3 s/p L4-S1 ALIF w/ PSIF. Patient is doing well. No acute events over night. Pain controlled w/ PO percocet. OOB w/ PT. Passing gas. Ileus resolving. Diet advanced to soft. patient had fever x 1. UA is neg. Using Incentive spirometer. Medicine aware. O: Vitals: Vital Signs Date Temp Pulse Resp B/P (MAP) Pulse Ox O2 O2 Flow FiO2 Time Delivery Rate 07/23/18 98.0 75 18 124/50 95 Room Air 08:06 (74) 07/23/18 98.0 20 120/60 99 Nasal 06:13 (80) Cannula Gen: AAOx3, NAD Spine: Mild decreased sensation in RLE in L5 distribution (improved from pre- op), 4+/5 TA (improved from preop), NVI Abdomen: Mild SS drainage, soft, mild distension A/P:57 yo F POD#3 s/p L4-S1 ALIF w/ PSIF. 1. Possible D/C to ARU tomorrow if remains afebrile 2. Soft diet 3. Appreciate med recs Exam/Review of Systems Exam Vitals Vital Signs Date Temp Pulse Resp B/P (MAP) Pulse Ox O2 O2 Flow FiO2 Time Delivery Rate 07/23/18 98.0 75 18 124/50 95 Room Air 08:06 (74) 07/22/18 2.0 20:39 Intake and Output 07/22/18 07/22/18 07/23/18 1515:00 23:00 07:00 IntakeIntake Total 206 ml 480 ml 400 ml OutputOutput Total 800 ml BalanceBalance 206 ml 480 ml -400 ml Results Result Diagram: 07/23/18 0452 07/23/18 0452 Results 24hrs Laboratory Tests Test 07/23/18 04:52 07/23/18 04:53 White Blood Count 7.0 Red Blood Count 3.15 L Hemoglobin 10.1 L Hematocrit 30.4 L Mean Corpuscular Volume 96.5 Mean Corpuscular Hemoglobin 32.1 Mean Corpuscular Hemoglobin Concent 33.2 Red Cell Distribution Width 14.8 H Platelet Count 178 Mean Platelet Volume 11.7 H Immature Granulocytes % 0.400 Neutrophils % 75.0 Lymphocytes % 14.9 L Monocytes % 8.7 Eosinophils % 0.7 Basophils % 0.3 Nucleated Red Blood Cells % 0.0 Immature Granulocytes # 0.030 Neutrophils # 5.2 Lymphocytes # 1.0 Monocytes # 0.6 Eosinophils # 0.1 Basophils # 0.0 Nucleated Red Blood Cells # 0.0 Sodium Level 137 Potassium Level 3.8 Chloride Level 102 Carbon Dioxide Level 30 Anion Gap 5 Blood Urea Nitrogen 9 Creatinine 0.66 Est Glomerular Filtrat Rate mL/min > 60 Glucose Level 110 Calcium Level 8.7 Phosphorus Level 3.0 Magnesium Level 2.2 Iron Level 18 L Total Iron Binding Capacity 253 Percent Iron Saturation 7 L Ferritin 304.0 H Medications Medication Current Medications Acetaminophen/ Hydrocodone Bitart ([place] (5/325)) 1 tab Q4H PRN PO .PAIN 1-5 Last administered on 07/22/18at 18:30; Admin Dose 1 TAB; Start 07/20/18 at 15:00 Acetaminophen/ Hydrocodone Bitart ([place] (5/325)) 2 tab Q4H PRN PO .PAIN 6-10 Last administered on 07/23/18at 09:34; Admin Dose 2 TAB; Start 07/20/18 at 15:00 Prochlorperazine (Compazine) 10 mg Q4H PRN PO NAUSEA/VOMITING; Start 07/20/18 at 15:00 Ondansetron HCl (Zofran Inj) 4 mg Q6H PRN IV NAUSEA/VOMITING Last administered on 07/20/18at 16:03; Admin Dose 4 MG; Start 07/20/18 at 15:00 Docusate Sodium (Colace) 100 mg BID PO Last administered on 07/23/18at 09:31; Admin Dose 100 MG; Start 07/21/18 at 09:00 Acetaminophen (Tylenol Tab) 650 mg Q4H PRN PO TEMP GREATER THAN 101F OR [place]; Start 07/20/18 at 15:00 IV Flush (NS 3 ml) 3 ml PER PROTOCOL IV ; Start 07/20/18 at 15:00 Naloxone HCl (Narcan) 0.2 mg Q2M PRN IV RR 8 BREATHS/MIN OR LESS; Start 07/20/18 at 15:00 Levothyroxine Sodium (Synthroid) 25 mcg BEFORE BREAKFAST PO Last administered on 07/23/18 06:15; Admin Dose 25 MCG; Start 07/21/18 at 07:00 Losartan Potassium (Cozaar) 50 mg DAILY PO Last administered on 07/23/18 09:31; Admin Dose 50 MG; Start 07/20/18 at 18:00 Hydromorphone HCl (Dilaudid) 0.5 mg Q3H PRN IV SEVERE PAIN LEVEL 7-10 Last administered on 07/22/18 20:35; Admin Dose 0.5 MG; Start 07/21/18 at 13:30 Simethicone (Mylicon) 80 mg BID PRN PO DISTENSION/GAS/BLOATING Last administered on 07/22/18 20:45; Admin Dose 80 MG; Start 07/21/18 at 20:00 Acetaminophen 100 ml @ 400 mls/hr Q12H PRN IVPB PAIN Last administered on 07/22/18 09:20; Admin Dose 400 MLS/HR; Start 07/22/18 at 08:00 OVIDIO NOVA MD Jul 23, 2018 12:24
[2018-07-23 14:58] VITALS: BP 117/58; PULSE 89; RESP 20
[2018-07-23 19:40] VITALS: BP 112/55; PULSE 87; RESP 20
[2018-07-24] MEDS: HYDROCODONE/APAP (5/325) TAB PO PRN ×2 (01:03→09:27)
[2018-07-24 02:10] VITALS: BP 133/62; PULSE 86; RESP 20
[2018-07-24 07:26] VITALS: BP 126/61; PULSE 85; RESP 19
[2018-07-24] MEDS: LEVOTHYROXINE 25 MCG TAB PO SCH (07:40)
--- NOTE | 2018-07-24 08:11 | CONS ---
Assessment/Plan Assessment/Plan Assessment/Plan (Daily) 1. Stable post op lumbar back surgery. 2. HBP, controlled, diuretic resumed 3. Hypothyroidism, on replacement 4. Iron def, po iron started 5. OK to transfer to acute rehab Consultation Date/Type/Reason Admit Date/Time Jul 20, 2018 at 05:52 Initial Consult Date Date/Time of Note DATE: 07/24/18 TIME: 08:10 Detailed Summary Respiratory: No cough, No shortness of breath Cardiovascular: No chest pain Gastrointestinal: other (no bm); No pain Genitourinary: no complaints Musculoskeletal: back pain (mild and burning noted right lat thigh) Exam/Review of Systems Exam Vitals Vital Signs Date Temp Pulse Resp B/P (MAP) Pulse Ox O2 O2 Flow FiO2 Time Delivery Rate 07/24/18 98.2 85 19 126/61 98 07:26 (82) 07/24/18 Room Air 02:10 07/22/18 2.0 20:39 Intake and Output 07/23/18 07/23/18 07/24/18 1515:00 23:00 07:00 IntakeIntake Total 320 ml 720 ml BalanceBalance 320 ml 720 ml Neck: No jvd Respiratory: clear to auscultation Cardiovascular: regular rate and rhythm Gastrointestinal: soft Extremities: No edema (no palp abnl right thigh) Results Result Diagram: 07/24/18 0453 07/24/18 0453 Results 24hrs Laboratory Tests Test 07/24/18 04:53 White Blood Count 5.8 Red Blood Count 3.19 L Hemoglobin 10.2 L Hematocrit 30.6 L Mean Corpuscular Volume 95.9 Mean Corpuscular Hemoglobin 32.0 Mean Corpuscular Hemoglobin Concent 33.3 Red Cell Distribution Width 14.6 H Platelet Count 195 Mean Platelet Volume 11.2 H Immature Granulocytes % 0.500 H Neutrophils % 65.9 Lymphocytes % 21.9 Monocytes % 8.6 Eosinophils % 2.8 Basophils % 0.3 Nucleated Red Blood Cells % 0.0 Immature Granulocytes # 0.030 Neutrophils # 3.8 Lymphocytes # 1.3 Monocytes # 0.5 Eosinophils # 0.2 Basophils # 0.0 Nucleated Red Blood Cells # 0.0 Sodium Level 137 Potassium Level 3.8 Chloride Level 101 Carbon Dioxide Level 30 Anion Gap 6 Blood Urea Nitrogen 10 Creatinine 0.60 Est Glomerular Filtrat Rate mL/min > 60 Glucose Level 105 Calcium Level 8.4 Medications Medication Current Medications Acetaminophen/ Hydrocodone Bitart ([place] (5/325)) 1 tab Q4H PRN PO .PAIN 1-5 Last administered on 07/22/18 18:30; Admin Dose 1 TAB; Start 07/20/18 at 15:00 Acetaminophen/ Hydrocodone Bitart ([place] (5/325)) 2 tab Q4H PRN PO .PAIN 6-10 Last administered on 07/24/18 01:03; Admin Dose 2 TAB; Start 07/20/18 at 15:00 Prochlorperazine (Compazine) 10 mg Q4H PRN PO NAUSEA/VOMITING; Start 07/20/18 at 15:00 Ondansetron HCl (Zofran Inj) 4 mg Q6H PRN IV NAUSEA/VOMITING Last administered on 07/20/18 16:03; Admin Dose 4 MG; Start 07/20/18 at 15:00 Docusate Sodium (Colace) 100 mg BID PO Last administered on 07/23/18 20:28; Admin Dose 100 MG; Start 07/21/18 at 09:00 Acetaminophen (Tylenol Tab) 650 mg Q4H PRN PO TEMP GREATER THAN 101F OR [place]; Start 07/20/18 at 15:00 IV Flush (NS 3 ml) 3 ml PER PROTOCOL IV ; Start 07/20/18 at 15:00 Naloxone HCl (Narcan) 0.2 mg Q2M PRN IV RR 8 BREATHS/MIN OR LESS; Start 07/20/18 at 15:00 Levothyroxine Sodium (Synthroid) 25 mcg BEFORE BREAKFAST PO Last administered on 07/24/18 07:40; Admin Dose 25 MCG; Start 07/21/18 at 07:00 Losartan Potassium (Cozaar) 50 mg DAILY PO Last administered on 07/23/18 09:31; Admin Dose 50 MG; Start 07/20/18 at 18:00 Hydromorphone HCl (Dilaudid) 0.5 mg Q3H PRN IV SEVERE PAIN LEVEL 7-10 Last a dministered on 07/22/18 20:35; Admin Dose 0.5 MG; Start 07/21/18 at 13:30 Simethicone (Mylicon) 80 mg BID PRN PO DISTENSION/GAS/BLOATING Last administered on 07/22/18at 20:45; Admin Dose 80 MG; Start 07/21/18 at 20:00 AMISH WARD MD Jul 24, 2018 08:11
[2018-07-24] MEDS ORDERED: FERROUS FUMARATE (SR) TAB PO SCH (09:00)
[2018-07-24] MEDS ORDERED: HYDROCHLOROTHIAZIDE 12.5 MG CAP PO SCH (09:00)
[2018-07-24] MEDS: DOCUSATE SODIUM 100 MG CAP PO SCH (09:22)
[2018-07-24] MEDS: LOSARTAN 50 MG TAB PO SCH (09:23)
--- NOTE | 2018-07-24 10:40 | PDOCDIS ---
Discharge Instructions CONDITION [id number] Patient Condition: [id number] Good HOME CARE INSTRUCTIONS: [id number] Diet Instructions: [id number] Regular ACTIVITY: [id number] Activity Restrictions: [id number] Slowly Increase Activity Rest between Activity Avoid heavy lifting Do not Drive Do not operate Machinery Do not operate Power Tool Avoid Heavy Housework [id number] Bathing Restrictions: [id number] Shower FOLLOW UP/APPOINTMENTS Follow-up Plan Follow-up in 2 weeks with OVIDIO Wallis MD Jul 24, 2018 10:40
== END 2018-07-24 12:15 | DRG 454 ==
LOC: REC 05:52 → EDBD 07:30 → MS1 17:18
PROVIDERS: ADMIT Orthopaedic Surgery; ATTEND Orthopaedic Surgery
PROC: 0SG30A0 Fusion of Lumbosacral Joint with Interbody Fusion Device, Anterior Approach, Anterior Column, Open Approach (ICD-10-PCS; 2018-07-20)
PROC: 0SG10J1 Fusion of 2 or more Lumbar Vertebral Joints with Synthetic Substitute, Posterior Approach, Posterior Column, Open Approach (ICD-10-PCS; 2018-07-20)
PROC: 4A11X4G Monitoring of Peripheral Nervous Electrical Activity, Intraoperative, External Approach (ICD-10-PCS; 2018-07-20)
PROC: 0ST40ZZ Resection of Lumbosacral Disc, Open Approach (ICD-10-PCS; principal; 2018-07-20 07:30)
DX: M51.17 Intervertebral disc disorders with radiculopathy, lumbosacral region (principal); Z68.41 Body mass index [BMI] 40.0-44.9, adult; K56.7 Ileus, unspecified; M48.07 Spinal stenosis, lumbosacral region; E66.01 Morbid (severe) obesity due to excess calories; I10 Essential (primary) hypertension; E03.9 Hypothyroidism, unspecified; D64.9 Anemia, unspecified; R05 Cough
CPT/HCPCS: 71045; 72114; 80048; 81001; 82728; 83540; 83735; 84100; 85014; 85018; 85025; 86850; 86900; 86901; 86920; 87086; 88304; 97110; 97116; 97162; 97530; C1762; J0131; J0360; J1100; J1170; J1644; J2175; J2250; J2270; J2405; J2765; J3010; J3370; J3475; J7120; L8699

== ENCOUNTER 2018-07-24 12:48 | Inpatient (IN) | payer OTHER ==
[~2018-07-24] VITALS: Ht 170.2 cm; Wt 116.6 kg
[~2018-07-24 12:48] MED LIST: LEVO25TA50 PO; LOSA1TAB22 PO
[2018-07-24 13:00] VITALS: BP 122/65; PULSE 78; RESP 18
[2018-07-24 14:00] VITALS: BP 117/62; PULSE 73; RESP 18
[2018-07-24] MEDS ORDERED: PENDING SANTYL ORDER FOR WOUND CARE XX PRN (14:00)
[2018-07-24 15:00] VITALS: BP 122/62; PULSE 78; RESP 18
[2018-07-24] MEDS ORDERED: HYDROCODONE/APAP (5/325) TAB PO PRN (15:00)
[2018-07-24] MEDS ORDERED: HYDROmorphONE 0.5 MG/0.5 ML SYG IV PRN (15:00)
[2018-07-24] MEDS ORDERED: ACETAMINOPHEN 325 MG TAB PO PRN (15:00)
[2018-07-24] MEDS ORDERED: LACTULOSE 30ML CUP PO PRN (15:00)
[2018-07-24] MEDS ORDERED: PROCHLORPERAZINE 10 MG TAB PO PRN (15:00)
[2018-07-24] MEDS ORDERED: ONDANSETRON (ODT) 4 MG TAB ODT PRN (15:00)
[2018-07-24] MEDS: HYDROCODONE/APAP (5/325) TAB PO PRN ×2 (17:48→21:53)
[2018-07-24 20:00] VITALS: BP 107/62; PULSE 80; RESP 18
[2018-07-24] MEDS: FERROUS FUMARATE (SR) TAB PO SCH (21:51)
[2018-07-24] MEDS: DOCUSATE SODIUM 100 MG CAP PO SCH (21:51)
[2018-07-25 02:00] VITALS: BP 118/64; PULSE 77; RESP 18
[2018-07-25] MEDS: HYDROCHLOROTHIAZIDE 12.5 MG CAP PO SCH (06:29)
[2018-07-25] MEDS: LEVOTHYROXINE 25 MCG TAB PO SCH (06:29)
[2018-07-25 07:00] VITALS: BP 141/67; PULSE 86; RESP 18
[2018-07-25] MEDS: SENNA TAB PO SCH (08:35)
[2018-07-25] MEDS: FERROUS FUMARATE (SR) TAB PO SCH ×2 (08:35→21:23)
[2018-07-25] MEDS: DOCUSATE SODIUM 100 MG CAP PO SCH ×2 (08:35→21:23)
[2018-07-25] MEDS: HYDROCODONE/APAP (5/325) TAB PO PRN ×3 (08:36→21:45)
[2018-07-25] MEDS: LOSARTAN 50 MG TAB PO SCH (08:38)
--- NOTE | 2018-07-25 08:59 | HP ---
Date/Time of Note Date/Time of Note DATE: 07/25/18 TIME: 08:50 Assessment/Plan VTE Prophylaxis Risk score (from [facility] [place]0 risk: 6 SCD applied (from [facility] [place]): Yes Pharmacological prophylaxis: NA/contraindicated Pharm contraindication: surgical contra Lines/Catheters Central line still needed: No Urinary Cath still in place: No Assessment/Plan Assessment/Plan 1.) Continue Post-op rehab with PT/OT on acute rehab floor. 2.) Zofran and compazine prn for nausea. If persistent will check abdominal x- ray to r/o ileus. 3.) Continue ARB/HCTZ for hypertension. 4.) Synthroid daily for hypothyroidism. 5.) On oral iron for hx of iron deficiency. ? if causing nausea long with pain rx. Continue for now. Result Diagram: 07/25/18 0554 07/25/18 0554 Results 24hrs Laboratory Tests Test 07/24/18 18:45 07/25/18 05:54 Urine Color YELLOW Urine Clarity CLEAR Urine pH 7.0 Urine Specific [place] 1.009 Urine Ketones NEGATIVE Urine Nitrite NEGATIVE Urine Bilirubin NEGATIVE Urine Urobilinogen 2+ H Urine Leukocyte Esterase 2+ H Urine Microscopic RBC 1 Urine Microscopic WBC 35 H Urine Bacteria FEW A Urine Hemoglobin 1+ H Urine Glucose NEGATIVE Urine Total Protein NEGATIVE White Blood Count 4.8 Red Blood Count 3.69 L Hemoglobin 11.6 L Hematocrit 35.3 L Mean Corpuscular Volume 95.7 Mean Corpuscular Hemoglobin 31.4 Mean Corpuscular Hemoglobin Concent 32.9 Red Cell Distribution Width 14.6 H Platelet Count 244 # Mean Platelet Volume 11.1 H Immature Granulocytes % 0.400 Neutrophils % 60.8 Lymphocytes % 24.5 Monocytes % 9.1 Eosinophils % 4.8 Basophils % 0.4 Nucleated Red Blood Cells % 0.0 Immature Granulocytes # 0.020 Neutrophils # 2.9 Lymphocytes # 1.2 Monocytes # 0.4 Eosinophils # 0.2 Basophils # 0.0 Nucleated Red Blood Cells # 0.0 Sodium Level 137 Potassium Level 3.5 Chloride Level 99 Carbon Dioxide Level 31 Anion Gap 7 Blood Urea Nitrogen 11 Creatinine 0.65 Est Glomerular Filtrat Rate mL/min > 60 Glucose Level 103 Calcium Level 9.2 Total Bilirubin 1.0 Direct Bilirubin 0.00 Indirect Bilirubin 1.0 Aspartate Amino Transf (AST/SGOT) 59 H Alanine Aminotransferase (ALT/SGPT) 48 Alkaline Phosphatase 102 Total Protein 7.0 Albumin 3.6 Globulin 3.40 H Albumin/Globulin Ratio 1.05 HPI/ROS Admit Date/Time Admit Date/Time Jul 24, 2018 at 13:44 Hx of Present Illness 57 yo female admitted to acute rehab after undergoing lumbar spinal surgery on 2018. Postop course relatively uneventful other than transient fever and mild post-op ileus which had resolved. Did have some nausea with Emesis X 1 this AM. No chest pain or dyspnea, no symptoms. ROS Constitutional: chills, diaphoresis, febrile ENT: no complaints Respiratory: no complaints Cardiovascular: no complaints Gastrointestinal: no complaints, pain, blood, constipation, decreased appetite, diarrhea, flatus, nausea, passing stool, vomiting, other Genitourinary: no complaints Musculoskeletal: back pain Skin: no complaints Neurologic: no complaints PMH/Family/Social Past Medical History Medical History: hypertension, hypothyroid, other Medications Current Medications Miscellaneous Information (Pending [facility] Order For Wound Care) This patient huerta... PRN PRN XX WOUND CARE; Start 07/24/18 at 14:00 Acetaminophen (Tylenol Tab) 650 mg Q4H PRN PO MILD PAIN(1-3)OR ELEVATED TEMP; Start 07/24/18 at 15:00 Docusate Sodium/ Ferrous Fumarate (Kiran-Sequels) 1 tab BID PO Last adm inistered on 07/25/18at 08:35; Admin Dose 1 TAB; Start 07/24/18 at 21:00 Docusate Sodium (Colace) 100 mg BID PO Last administered on 07/25/18at 08:35; Admin Dose 100 MG; Start 07/24/18 at 21:00 Hydrochlorothiazide (Hydrochlorothiazide) 12.5 mg DAILY@0600 PO Last administered on 07/25/18at 06:29; Admin Dose 12.5 MG; Start 07/25/18 at 06:00 Acetaminophen/ Hydrocodone Bitart ([place] (5/325)) 1 tab Q4H PRN PO PAIN LEVEL 1-5; Start 07/24/18 at 15:00 Acetaminophen/ Hydrocodone Bitart ([place] (5/325)) 2 tab Q4H PRN PO MODERATE PAIN LEVEL 4-6 Last administered on 07/25/18at 08:36; Admin Dose 2 TAB; Start 07/24/18 at 15:00 Hydromorphone HCl (Dilaudid) 0.5 mg Q3H PRN IV SEVERE PAIN LEVEL 7-10; Start at 15:00 Levothyroxine Sodium (Synthroid) 25 mcg DAILY@06 PO Last administered on 07/25/18at 06:29; Admin Dose 25 MCG; Start 07/25/18 at 06:00 Losartan Potassium (Cozaar) 50 mg DAILY PO Last administered on 07/25/18at 08:38; Admin Dose 50 MG; Start 07/25/18 at 09:00 Ondansetron HCl (Zofran Odt) 4 mg Q6H PRN ODT NAUSEA; Start 07/24/18 at 15:00 Prochlorperazine (Compazine) 10 mg Q4H PRN PO NAUSEA AND/OR VOMITING; Start 07/24/18 at 15:00 Simethicone (Mylicon) 80 mg BID PRN PO DISTENSION/GAS/BLOATING; Start 07/24/18 at 15:00 Senna (Senokot) 1 tab DAILY PO Last administered on 07/25/18at 08:35; Admin Dose 1 TAB; Start 07/25/18 at 09:00 Magnesium Hydroxide (Milk Of Mag) 30 ml DAILY PRN PO CONSTIPATION; Start 07/24/18 at 15:00 Lactulose (Enulose) 10 gm DAILY PRN PO CONSTIPATION; Start 07/24/18 at 15:00 Coded Allergies: Penicillins (Verified Allergy, Mild, 07/20/18) procaine (Verified Allergy, Mild, 07/20/18) Fish Containing Products (Verified Allergy, Unknown, 07/23/18) Iodine and Iodide Containing Produc (Verified Allergy, Unknown, 07/20/18) shrimp (Verified Allergy, Unknown, 07/20/18) Past Surgical History Past Surgical Hx: noncontributory, other Social History Alcohol Use: none Smoking Status: Never smoker Drug Use: none Exam/Review of Systems Vital Signs Vitals Vital Signs Date Temp Pulse Resp B/P (MAP) Pulse Ox O2 O2 Flow FiO2 Time Delivery Rate 07/25/18 97.8 77 18 118/64 95 Room Air 02:00 (82) Intake and Output 07/24/18 07/24/18 07/25/18 1515:00 23:00 07:00 IntakeIntake Total 500 ml 850 ml BalanceBalance 500 ml 850 ml Exam Constitutional: alert, oriented Head: normocephalic, atraumatic Eyes: nl conjunctiva Neck: supple, non-tender Respiratory: clear to auscultation, normal air movement Cardiovascular: regular rate and rhythm, nl pulses Gastrointestinal: soft, non-tender DORA ARZOLA Jul 25, 2018 08:59
--- NOTE | 2018-07-25 13:41 | CONS ---
DATE OF ADMISSION: 07/24/2018 DATE OF CONSULTATION: 07/25/2018 REHABILITATION POST-ADMISSION PHYSICIAN EVALUATION REHABILITATION IMPAIRMENT CATEGORY: Lumbar radiculopathy status post decompressive surgery. ACTIVE COMORBIDITIES: 1. Hypertension. 2. Hypothyroidism. 3. Acute pain syndrome. 4. Iron deficiency. 5. Impairments in self-care and mobility. HISTORY OF PRESENT ILLNESS: The patient is a 57-year-old female with a history of previous lumbar surgery who had been noting increasing radiating low back pain despite conservative measures. Workup did reveal severe degenerative disk disease L4-L5, L5-S1 in addition to foraminal stenosis and radiculopathy. The patient underwent L4-L5, L5-S1 anterior lumbar interbody fusion. The patient's postoperative course was notable for pain, constipation, in addition to significant Impairments in self-care and mobility. The patient has been cleared to transfer to the rehabilitation unit for comprehensive interdisciplinary rehab care. FUNCTIONAL HISTORY: Prior to recent events, she was independent in self-care tasks and mobility. Currently, patient requires moderate to minimal assist for self-care and mobility tasks. I have reviewed the preadmission screen and patient's current functional status is consistent with the preadmission screen. FAMILY AND SOCIAL HISTORY: Patient lives at home and hopes to return upon discharge. PAST MEDICAL HISTORY: 1. Hypertension. 2. History of lumbar back surgery. 3. Hypothyroidism. 4. History of cholecystectomy. CURRENT MEDICATIONS: 1. Ferrous fumarate 1 tab p.o. b.i.d. 2. Colace 100 mg p.o. b.i.d. 3. Hydrochlorothiazide 12.5 mg p.o. daily. 4. [place] p.r.n. 5. Dilaudid p.r.n. 6. Synthroid 25 mcg p.o. q.a.m. ALLERGIES: 1. IODINE. 2. PENICILLIN. 3. PROCAINE. PHYSICAL EXAMINATION: VITAL SIGNS: The patient is currently afebrile with stable vital signs. HEENT: Extraocular motions are intact. Oropharynx is clear. NECK: Supple. LUNGS: Clear anteriorly. CARDIAC: S1, S2. ABDOMEN: Soft, nontender, positive bowel sounds. NEUROLOGIC: The patient is awake and alert and oriented x3. She can follow simple 1-step commands. She demonstrates antigravity strength in bilateral upper extremity and lower extremity. She does have impaired dynamic balance. PLAN: The patient has been admitted for comprehensive interdisciplinary acute rehab and is anticipated to tolerate 3 hours of daily therapy in divided doses for at least 5/7 days a week. The treatment plan will include: 1. Physical therapy to focus on bed mobility, transfers, and household ambulation with the goal of having the patient reach a modified independent level. 2. Occupational therapy to focus on hygiene, grooming, dressing, bathing, and toileting activities with the goal of having the patient reach a modified independent level. 3. Rehabilitation nursing for carryover of therapeutic interventions, the goal of continent of bowel and bladder, and the goal of patient and family education. ESTIMATED LENGTH OF STAY: One week. DISPOSITION GOAL: Home. REHABILITATION BARRIER: Pain. INTERVENTION FOR BARRIER: Interdisciplinary rehabilitation. I acknowledge that I performed a full physical examination on this patient within 24 hours of admission to the rehabilitation unit. I believe the patient is a good candidate for comprehensive interdisciplinary rehab care and is anticipated to make reasonable goals in a reasonable period of time as outlined above. Dictated By: CHRIS HARRIS MD LY/NTS Conf#: [id number] DID#: [id number] CC: AMISH WARD MD;*EndCC* MTDD
[2018-07-25 14:00] VITALS: BP 124/59; PULSE 83; RESP 18
[2018-07-25 19:34] VITALS: BP 112/77; PULSE 84; RESP 19
[2018-07-25] MEDS: MAGNESIUM HYDROXIDE 30ML CUP PO PRN (21:27)
[2018-07-26 02:30] VITALS: BP 138/72; PULSE 79; RESP 19
[2018-07-26] MEDS: LEVOTHYROXINE 25 MCG TAB PO SCH (06:50)
[2018-07-26] MEDS: HYDROCHLOROTHIAZIDE 12.5 MG CAP PO SCH (06:50)
[2018-07-26 07:30] VITALS: BP 123/61; PULSE 84; RESP 18
--- NOTE | 2018-07-26 07:55 | PN ---
Date/Time of Note Date/Time of Note DATE: 07/26/18 TIME: 07:50 Assessment/Plan VTE Prophylaxis Risk score (from [facility])>0 risk: 4 SCD applied (from [facility]): Yes Pharmacological prophylaxis: NA/contraindicated Pharm contraindication: surgical contra Lines/Catheters Urinary Cath still in place: No Assessment/Plan Assessment/Plan 1.) Continue Post-op rehab with PT/OT on acute rehab floor. Improving, pain relatively well controlled. 2.) Zofran and compazine prn for nausea. Had BM this AM, continue soft diet today, if tolerates consider advancing to regular tomorrow. 3.) Continue ARB/HCTZ for hypertension. Stable. 4.) Synthroid daily for hypothyroidism. 5.) On oral iron for hx of iron deficiency. 6.) Recheck UA and culture. Hold off on antibiotics at this time as she is asymptomatic. 7.) DVT Prophylaxis SCD's. Result Diagram: 07/25/18 0554 07/25/18 0554 Subjective 24 Hr Interval Summary Free Text/Dictation Feels well this morning. No further emesis since early yesterday morning. Thinks it was coffee on an empty stomach. Had BM this AM after receiving MOM last night. No symptoms. Worked well with PT yesterday. Pain tends to get worse towards evening time. Respiratory: no complaints Cardiovascular: no complaints Gastrointestinal: no complaints Genitourinary: no complaints Exam/Review of Systems Exam Vitals Vital Signs Date Temp Pulse Resp B/P (MAP) Pulse Ox O2 O2 Flow FiO2 Time Delivery Rate 07/26/18 98.0 79 19 138/72 95 Room Air 02:30 (94) Intake and Output 07/25/18 07/25/18 07/26/18 1515:00 23:00 07:00 IntakeIntake Total 480 ml 1080 ml OutputOutput Total 200 ml 500 ml BalanceBalance 280 ml 580 ml Constitutional: alert, oriented Respiratory: clear to auscultation, normal air movement Cardiovascular: regular rate and rhythm, nl pulses Gastrointestinal: soft, non-tender Medications Medication Current Medications Miscellaneous [facility] This patient huerta... PRN PRN XX WOUND CARE; Start 07/24/18 at 14:00 Acetaminophen (Tylenol Tab) 650 mg Q4H PRN PO MILD PAIN(1-3)OR ELEVATED TEMP; Start 07/24/18 at 15:00 Docusate Sodium/ Ferrous Fumarate (Kiran-Sequels) 1 tab BID PO Last administered on 07/25/18at 21:23; Admin Dose 1 TAB; Start 07/24/18 at 21:00 Docusate Sodium (Colace) 100 mg BID PO Last administered on 07/25/18at 21:23; Admin Dose 100 MG; Start 07/24/18 at 21:00 Hydrochlorothiazide (Hydrochlorothiazide) 12.5 mg DAILY@0600 PO Last administered on 07/26/18at 06:50; Admin Dose 12.5 MG; Start 07/25/18 at 06:00 Acetaminophen/ Hydrocodone Bitart ([place] (5/325)) 1 tab Q4H PRN PO PAIN LEVEL 1-5; Start 07/24/18 at 15:00 Acetaminophen/ Hydrocodone Bitart ([place] (5/325)) 2 tab Q4H PRN PO MODERATE PAIN LEVEL 4-6 Last administered on 07/25/18at 21:45; Admin Dose 2 TAB; Start 07/24/18 at 15:00 Hydromorphone HCl (Dilaudid) 0.5 mg Q3H PRN IV SEVERE PAIN LEVEL 7-10; Start 07/24/18 at 15:00 Levothyroxine Sodium (Synthroid) 25 mcg DAILY@06 PO Last administered on 07/26/18at 06:50; Admin Dose 25 MCG; Start 07/25/18 at 06:00 Losartan Potassium (Cozaar) 50 mg DAILY PO Last administered on 07/25/18at 08:38; Admin Dose 50 MG; Start 07/25/18 at 09:00 Ondansetron HCl (Zofran Odt) 4 mg Q6H PRN ODT NAUSEA; Start 07/24/18 at 15:00 Prochlorperazine (Compazine) 10 mg Q4H PRN PO NAUSEA AND/OR VOMITING; Start 07/24/18 at 15:00 Simethicone (Mylicon) 80 mg BID PRN PO DISTENSION/GAS/BLOATING; Start 07/24/18 at 15:00 Senna (Senokot) 1 tab DAILY PO Last administered on 07/25/18at 08:35; Admin Dose 1 TAB; Start 07/25/18 at 09:00 Magnesium Hydroxide (Milk Of Mag) 30 ml DAILY PRN PO CONSTIPATION Last administered on 07/25/18at 21:27; Admin Dose 30 ML; Start 07/24/18 at 15:00 Lactulose (Enulose) 10 gm DAILY PRN PO CONSTIPATION; Start 07/24/18 at 15:00 Multivitamins Therapeutic (Theragran) 1 tab DAILY PO ; Start 07/26/18 at 09:00 DORA ARZOLA Jul 26, 2018 07:55
[2018-07-26] MEDS: DOCUSATE SODIUM 100 MG CAP PO SCH ×2 (08:57→20:03)
[2018-07-26] MEDS: HYDROCODONE/APAP (5/325) TAB PO PRN ×2 (08:59→20:00)
[2018-07-26] MEDS: MULTIVITAMINS THERAPEUTIC TAB PO SCH (08:59)
[2018-07-26] MEDS: SENNA TAB PO SCH (09:00)
[2018-07-26] MEDS: FERROUS FUMARATE (SR) TAB PO SCH ×2 (09:00→20:00)
[2018-07-26] MEDS: LOSARTAN 50 MG TAB PO SCH (09:01)
[2018-07-26 14:00] VITALS: BP 106/54; PULSE 90; RESP 20
[2018-07-26 20:00] VITALS: BP 113/63; PULSE 89; RESP 18
[2018-07-26] MEDS: MAGNESIUM HYDROXIDE 30ML CUP PO PRN (20:08)
[2018-07-27 02:23] VITALS: BP 103/51; PULSE 77; RESP 18
[2018-07-27] MEDS: LEVOTHYROXINE 25 MCG TAB PO SCH (06:33)
[2018-07-27] MEDS: HYDROCHLOROTHIAZIDE 12.5 MG CAP PO SCH (06:34)
[2018-07-27] MEDS: HYDROCODONE/APAP (5/325) TAB PO PRN ×3 (06:34→21:14)
[2018-07-27 07:00] VITALS: BP 145/65; PULSE 83; RESP 18
--- NOTE | 2018-07-27 08:06 | CONS ---
Assessment/Plan Assessment/Plan Assessment/Plan (Daily) 1. Doing very well post lumbar back surgery 2. BP control is too "tight" will reduce Cozaar 3. Labs ordered this am 4. Hypothyroidism on replacement 5. Can dc when ok with Rehab Consultation Date/Type/Reason Admit Date/Time Jul 24, 2018 at 13:44 Initial Consult Date Date/Time of Note DATE: 07/27/18 TIME: 08:04 Detailed Summary Respiratory: No cough, No shortness of breath Cardiovascular: No chest pain Gastrointestinal: no complaints Genitourinary: no complaints Musculoskeletal: back pain (mild and mild discomfort right lat thigh) Exam/Review of Systems Exam Vitals Vital Signs Date Temp Pulse Resp B/P (MAP) Pulse Ox O2 O2 Flow FiO2 Time Delivery Rate 07/27/18 98.0 77 18 103/51 94 Room Air 02:23 (68) Intake and Output 07/26/18 07/26/18 07/27/18 1515:00 23:00 07:00 IntakeIntake Total 1100 ml OutputOutput Total 1 ml 250 ml BalanceBalance -1 ml 850 ml Neck: No jvd Respiratory: clear to auscultation Cardiovascular: regular rate and rhythm Gastrointestinal: soft Extremities: No edema, No pitting pedal edema, No tenderness Results Result Diagram: 07/25/18 0554 07/25/18 0554 Medications Medication Current Medications [facility] This patient huerta... PRN PRN XX WOUND CARE; Start 07/24/18 at 14:00 Acetaminophen (Tylenol Tab) 650 mg Q4H PRN PO MILD PAIN(1-3)OR ELEVATED TEMP; Start 07/24/18 at 15:00 Docusate Sodium/ Ferrous Fumarate (Kiran-Sequels) 1 tab BID PO Last administered on 07/26/18at 20:00; Admin Dose 1 TAB; Start 07/24/18 at 21:00 Docusate Sodium (Colace) 100 mg BID PO Last administered on 07/25/18at 21:23; Admin Dose 100 MG; Start 07/24/18 at 21:00 Hydrochlorothiazide (Hydrochlorothiazide) 12.5 mg DAILY@0600 PO Last administered on 07/27/18at 06:34; Admin Dose 12.5 MG; Start 07/25/18 at 06:00 Acetaminophen/ Hydrocodone Bitart ([place] (5/325)) 1 tab Q4H PRN PO PAIN LEVEL 1-5; Start 07/24/18 at 15:00 Acetaminophen/ Hydrocodone Bitart ([place] (5/325)) 2 tab Q4H PRN PO MODERATE PAIN LEVEL 4-6 Last administered on 07/27/18at 06:34; Admin Dose 2 TAB; Start 07/24/18 at 15:00 Hydromorphone HCl (Dilaudid) 0.5 mg Q3H PRN IV SEVERE PAIN LEVEL 7-10; Start 07/24/18 at 15:00 Levothyroxine Sodium (Synthroid) 25 mcg DAILY@06 PO Last administered on 07/27/18at 06:33; Admin Dose 25 MCG; Start 07/25/18 at 06:00 Ondansetron HCl (Zofran Odt) 4 mg Q6H PRN ODT NAUSEA; Start 07/24/18 at 15:00 Prochlorperazine (Compazine) 10 mg Q4H PRN PO NAUSEA AND/OR VOMITING; Start 07/24/18 at 15:00 Simethicone (Mylicon) 80 mg BID PRN PO DISTENSION/GAS/BLOATING; Start 07/24/18 at 15:00 Senna (Senokot) 1 tab DAILY PO Last administered on 07/25/18at 08:35; Admin Dose 1 TAB; Start 07/25/18 at 09:00 Magnesium Hydroxide (Milk Of Mag) 30 ml DAILY PRN PO CONSTIPATION Last administered on 07/26/18at 20:08; Admin Dose 30 ML; Start 07/24/18 at 15:00 Lactulose (Enulose) 10 gm DAILY PRN PO CONSTIPATION; Start 07/24/18 at 15:00 Multivitamins Therapeutic (Theragran) 1 tab DAILY PO Last administered on 07/26/18at 08:59; Admin Dose 1 TAB; Start 07/26/18 at 09:00 Losartan Potassium (Cozaar) 25 mg DAILY PO ; Start 07/27/18 at 09:00; Status AMISH RASCON MD Jul 27, 2018 08:06
[2018-07-27] MEDS: DOCUSATE SODIUM 100 MG CAP PO SCH ×2 (09:00→21:14)
[2018-07-27] MEDS: SENNA TAB PO SCH (09:00)
[2018-07-27] MEDS ORDERED: LOSARTAN 25 MG TAB PO SCH (09:00)
[2018-07-27] MEDS: MULTIVITAMINS THERAPEUTIC TAB PO SCH (09:22)
[2018-07-27] MEDS: FERROUS FUMARATE (SR) TAB PO SCH ×2 (09:22→21:14)
--- NOTE | 2018-07-27 11:40 | PN ---
Date/Time of Note Date/Time of Note DATE: 07/27/18 TIME: 11:30 Subjective Patient is anxious to return home soon Objective Vital Signs Date Temp Pulse Resp B/P (MAP) Pulse Ox O2 O2 Flow FiO2 Time Delivery Rate 07/27/18 97.8 83 18 145/65 95 Room Air 07:00 (91) Intake and Output 07/26/18 07/26/18 07/27/18 1515:00 23:00 07:00 IntakeIntake Total 1100 ml OutputOutput Total 1 ml 250 ml BalanceBalance -1 ml 850 ml Exam PR transfers and ambulation Results/Medications Result Diagram: 07/25/18 0554 07/27/18 0916 Results 24 hrs Laboratory Tests Test 07/27/18 09:16 Sodium Level 137 Potassium Level 4.1 Chloride Level 100 Carbon Dioxide Level 27 Anion Gap 10 Blood Urea Nitrogen 17 Creatinine 0.67 Est Glomerular Filtrat Rate mL/min > 60 Glucose Level 116 Calcium Level 9.6 Magnesium Level 2.2 Medications Current Medications Miscellaneous Information (Pending [facility] Order For Wound Care) This patient huerta... PRN PRN XX WOUND CARE; Start 07/24/18 at 14:00 Acetaminophen (Tylenol Tab) 650 mg Q4H PRN PO MILD PAIN(1-3)OR ELEVATED TEMP; Start 07/24/18 at 15:00 Docusate Sodium/ Ferrous Fumarate (Kiran-Sequels) 1 tab BID PO Last administered on 07/27/18at 09:22; Admin Dose 1 TAB; Start 07/24/18 at 21:00 Docusate Sodium (Colace) 100 mg BID PO Last administered on 07/25/18at 21:23; Admin Dose 100 MG; Start 07/24/18 at 21:00 Hydrochlorothiazide (Hydrochlorothiazide) 12.5 mg DAILY@0600 PO Last admi nistered on 07/27/18at 06:34; Admin Dose 12.5 MG; Start 07/25/18 at 06:00 Acetaminophen/ Hydrocodone Bitart ([place] (5/325)) 1 tab Q4H PRN PO PAIN LEVEL 1-5; Start 07/24/18 at 15:00 Acetaminophen/ Hydrocodone Bitart ([place] (5/325)) 2 tab Q4H PRN PO MODERATE PAIN LEVEL 4-6 Last administered on 07/27/18at 06:34; Admin Dose 2 TAB; Start 07/24/18 at 15:00 Hydromorphone HCl (Dilaudid) 0.5 mg Q3H PRN IV SEVERE PAIN LEVEL 7-10; Start 07/24/18 at 15:00 Levothyroxine Sodium (Synthroid) 25 mcg DAILY@06 PO Last administered on 07/27/18at 06:33; Admin Dose 25 MCG; Start 07/25/18 at 06:00 Ondansetron HCl (Zofran Odt) 4 mg Q6H PRN ODT NAUSEA; Start 07/24/18 at 15:00 Prochlorperazine (Compazine) 10 mg Q4H PRN PO NAUSEA AND/OR VOMITING; Start 07/24/18 at 15:00 Simethicone (Mylicon) 80 mg BID PRN PO DISTENSION/GAS/BLOATING; Start 07/24/18 at 15:00 Senna (Senokot) 1 tab DAILY PO Last administered on 07/25/18at 08:35; Admin Dose 1 TAB; Start 07/25/18 at 09:00 Magnesium Hydroxide (Milk Of Mag) 30 ml DAILY PRN PO CONSTIPATION Last administered on 07/26/18at 20:08; Admin Dose 30 ML; Start 07/24/18 at 15:00 Lactulose (Enulose) 10 gm DAILY PRN PO CONSTIPATION; Start 07/24/18 at 15:00 Multivitamins Therapeutic (Theragran) 1 tab DAILY PO Last administered on 07/27/18at 09:22; Admin Dose 1 TAB; Start 07/26/18 at 09:00 Losartan Potassium (Cozaar) 25 mg DAILY PO Last administered on 07/27/18at 09:23; Admin Dose 25 MG; Start 07/27/18 at 09:00 Assessment/Plan Additional Assessment/Plan Rehab- Lumbar radiculopathy, s/p surgery Excellent progress. Home tomorrow Hypertension Hypothyroidism CHRIS HARRIS MD Jul 27, 2018 11:40
[2018-07-27 14:00] VITALS: BP 132/65; PULSE 83; RESP 18
[2018-07-27 20:14] VITALS: BP 136/60; PULSE 87; RESP 18
[2018-07-28 02:14] VITALS: BP 128/68; PULSE 82; RESP 18
[2018-07-28] MEDS: LEVOTHYROXINE 25 MCG TAB PO SCH (06:29)
[2018-07-28] MEDS: HYDROCHLOROTHIAZIDE 12.5 MG CAP PO SCH (06:30)
[2018-07-28] MEDS: HYDROCODONE/APAP (5/325) TAB PO PRN (06:30)
[2018-07-28 07:00] VITALS: BP 132/67; PULSE 87; RESP 18
--- NOTE | 2018-07-28 08:19 | CONS ---
Assessment/Plan Assessment/Plan Assessment/Plan (Daily) 1. Post op lumbar back surgery doing very well with min pain and quite mobile 2. BP controlled, would dc on meds she was taking pre admit 3. Labs rev Consultation Date/Type/Reason Admit Date/Time Jul 24, 2018 at 13:44 Initial Consult Date Date/Time of Note DATE: 07/28/18 TIME: 08:17 Detailed Summary Respiratory: No cough, No shortness of breath Cardiovascular: No chest pain Gastrointestinal: no complaints Genitourinary: no complaints Musculoskeletal: back pain (mild ) Exam/Review of Systems Exam Vitals Vital Signs Date Temp Pulse Resp B/P (MAP) Pulse Ox O2 O2 Flow FiO2 Time Delivery Rate 07/28/18 97.8 82 18 128/68 97 Room Air 02:14 (88) Intake and Output 07/27/18 07/27/18 07/28/18 1515:00 23:00 07:00 IntakeIntake Total 240 ml 1800 ml OutputOutput Total 800 ml BalanceBalance 240 ml 1000 ml Neck: No jvd Respiratory: clear to auscultation Cardiovascular: regular rate and rhythm Gastrointestinal: soft Extremities: No edema, No tenderness Results Result Diagram: 07/25/18 0554 07/27/18 0916 Results 24hrs Laboratory Tests Test 07/27/18 09:16 07/27/18 16:00 Sodium Level 137 Potassium Level 4.1 Chloride Level 100 Carbon Dioxide Level 27 Anion Gap 10 Blood Urea Nitrogen 17 Creatinine 0.67 Est Glomerular Filtrat Rate mL/min > 60 Glucose Level 116 Calcium Level 9.6 Magnesium Level 2.2 Urine Color YELLOW Urine Clarity CLEAR Urine pH 6.0 Urine Specific [place] 1.005 Urine Ketones NEGATIVE Urine Nitrite NEGATIVE Urine Bilirubin NEGATIVE Urine Urobilinogen NEGATIVE Urine Leukocyte Esterase TRACE A Urine Microscopic RBC 1 Urine Microscopic WBC 7 H Urine Bacteria FEW A Urine Hemoglobin 1+ H Urine Glucose NEGATIVE Urine Total Protein NEGATIVE Medications Medication Current Medications Miscellaneous Information [facility] This patient huerta... PRN PRN XX WOUND CARE; Start 07/24/18 at 14:00 Acetaminophen (Tylenol Tab) 650 mg Q4H PRN PO MILD PAIN(1-3)OR ELEVATED TEMP; Start 07/24/18 at 15:00 Docusate Sodium/ Ferrous Fumarate (Kiran-Sequels) 1 tab BID PO Last administered on 07/27/18at 21:14; Admin Dose 1 TAB; Start 07/24/18 at 21:00 Docusate Sodium (Colace) 100 mg BID PO Last administered on 07/27/18at 21:14; Admin Dose 100 MG; Start 07/24/18 at 21:00 Hydrochlorothiazide (Hydrochlorothiazide) 12.5 mg DAILY@0600 PO Last administered on 07/28/18 06:30; Admin Dose 12.5 MG; Start 07/25/18 at 06:00 Acetaminophen/ Hydrocodone Bitart ([place] (5/325)) 1 tab Q4H PRN PO PAIN LEVEL 1-5; Start 07/24/18 at 15:00 Acetaminophen/ Hydrocodone Bitart ([place] (5/325)) 2 tab Q4H PRN PO MODERATE PAIN LEVEL 4-6 Last administered on 07/28/18at 06:30; Admin Dose 2 TAB; Start 07/24/18 at 15:00 Hydromorphone HCl (Dilaudid) 0.5 mg Q3H PRN IV SEVERE PAIN LEVEL 7-10; Start 07/24/18 at 15:00 Levothyroxine Sodium (Synthroid) 25 mcg DAILY@06 PO Last administered on 07/28/18at 06:29; Admin Dose 25 MCG; Start 07/25/18 at 06:00 Ondansetron HCl (Zofran Odt) 4 mg Q6H PRN ODT NAUSEA; Start 07/24/18 at 15:00 Prochlorperazine (Compazine) 10 mg Q4H PRN PO NAUSEA AND/OR VOMITING; Start 07/24/18 at 15:00 Simethicone (Mylicon) 80 mg BID PRN PO DISTENSION/GAS/BLOATING; Start 07/24/18 at 15:00 Senna (Senokot) 1 tab DAILY PO Last administered on 07/25/18at 08:35; Admin Dose 1 TAB; Start 07/25/18 at 09:00 Magnesium Hydroxide (Milk Of Mag) 30 ml DAILY PRN PO CONSTIPATION Last administered on 07/26/18at 20:08; Admin Dose 30 ML; Start 07/24/18 at 15:00 Lactulose (Enulose) 10 gm DAILY PRN PO CONSTIPATION; Start 07/24/18 at 15:00 Multivitamins Therapeutic (Theragran) 1 tab DAILY PO Last administered on 07/27/18at 09:22; Admin Dose 1 TAB; Start 07/26/18 at 09:00 Losartan Potassium (Cozaar) 25 mg DAILY PO Last administered on 07/27/18at 09:23; Admin Dose 25 MG; Start 07/27/18 at 09:00 AMISH WARD MD Jul 28, 2018 08:19
[2018-07-28] MEDS: FERROUS FUMARATE (SR) TAB PO SCH (08:30)
[2018-07-28] MEDS: SENNA TAB PO SCH (08:30)
[2018-07-28] MEDS: DOCUSATE SODIUM 100 MG CAP PO SCH (08:30)
[2018-07-28] MEDS: MULTIVITAMINS THERAPEUTIC TAB PO SCH (08:30)
[2018-07-28] MEDS ORDERED: LOSARTAN 50 MG TAB PO SCH (09:00)
--- NOTE | 2018-07-28 11:21 | DS ---
Date/Time of Note Date/Time of Note DATE: 07/28/18 TIME: 11:20 Discharge Summary Admission/Discharge Info Admit Date/Time Jul 24, 2018 at 13:44 Discharge Date/Time Discharge Diagnosis 1.Lumbar radiculopathy status post decompressive surgery. 2. Hypothyroidism. 3. Hypertension 4. Iron deficiency. 5. Improvements in self-care and mobility. Patient Condition: Good Hospital Course The patient was admitted for comprehensive interdisciplinary rehabilitation and made steady functional gains from a Min/Mod level to a MS level for self care tasks and mobility including ambulating over 150 feet with the use of a FWW. Patient is being discharged home with the recommendation of home health PT, OT follow up. The DC meds are per the medication reconciliation sheet. The discharge equipment recommendations include: FWW, BSC, shower chair. The patient will follow up with PMD upon DC. Home Meds Reported Medications Losartan-Hydrochlorothiazide (Losartan-HCTZ) 50-12.5 Mg Tab, 1 TAB PO DAILY, TAB 07/20/18 Levothyroxine Sodium* (Levoxyl*) 25 Mcg Tablet, 25 MCG PO BEFORE BREAKFAST, #30 TAB 07/20/18 Primary Care Provider Not On Staff Doctor Pending Labs Laboratory Tests Test 07/27/18 16:00 Urine Color YELLOW (YELLOW) Urine Clarity CLEAR (CLEAR) Urine pH 6.0 (5.0-9.0) Urine Specific [place] 1.005 (1.003-1.030) Urine Ketones NEGATIVE mg/dL (NEGATIVE) Urine Nitrite NEGATIVE mg/dL (NEGATIVE) Urine Bilirubin NEGATIVE mg/dL (NEGATIVE) Urine Urobilinogen NEGATIVE mg/dL (NEGATIVE) Urine Leukocyte Esterase TRACE Robinson/ul (NEGATIVE) Urine Microscopic RBC 1 /HPF (0-5) Urine Microscopic WBC 7 /HPF (0-5) Urine Bacteria FEW /HPF (NONE SEEN) Urine Hemoglobin 1+ mg/dL (NEGATIVE) Urine Glucose NEGATIVE mg/dL (NEGATIVE) Urine Total Protein NEGATIVE mg/dl (NEGATIVE) CHRIS HARRIS MD Jul 28, 2018 11:21
== END 2018-07-28 12:03 | disposition home health service (06) | DRG 561 ==
LOC: VRC 13:44
PROVIDERS: ADMIT Physical Medicine & Rehabilitation; ATTEND Internal Medicine
DX: Z47.89 Encounter for other orthopedic aftercare (principal); I10 Essential (primary) hypertension; E03.9 Hypothyroidism, unspecified; R52 Pain, unspecified; D50.9 Iron deficiency anemia, unspecified; Z74.09 Other reduced mobility
CPT/HCPCS: 72100; 80048; 80053; 81001; 83735; 85025; 87081; 87086; 97110; 97116; 97163; 97530; 97535; J1170